=== PATIENT | female | born 1970 | race Caucasian/White ===

== ENCOUNTER 2020-10-28 08:33 | Emergency (ER) | payer BC, SELFPAY ==
[2020-10-28 08:48] VITALS: BP 114/68; PULSE 78; RESP 16; TEMP 37.2; O2SAT 100
--- NOTE | 2020-10-28 09:30 | ED.URI ---
HPI - URI/Sore Throat General Chief Complaint: Upper Respiratory Infection Stated Complaint: Test for Flu Time Seen by Provider: 10/28/20 09:05 Source: patient and RN notes reviewed Mode of arrival: ambulatory Limitations: no limitations History of Present Illness HPI Narrative: Patient presents today complaining of productive cough, fatigue, runny nose, sneezing since yesterday. Denies fever, shortness of breath, sore throat, ear pain, nausea, vomiting, diarrhea. She does have seasonal allergies, but does not take any medication for it. She is in town from [place]. Her grandson tested positive for influenza A yesterday and is here for a flu test. She does smoke. MD elicited complaint: cough Related Data Home Medications Medication Instructions Recorded Confirmed atorvastatin 10 mg PO DAILY 10/28/20 10/28/20 lisinopril 2.5 mg PO DAILY 10/28/20 10/28/20 metformin 500 mg PO BID 10/28/20 10/28/20 Allergies Allergy/AdvReac Type Severity Reaction Status Date / Time No Known Allergies Allergy Verified 10/28/20 09:27 Review of Systems Review of Systems: Narrative: CONSTITUTIONAL: Denies body aches, fever, chills, or sweats.+ Fatigue EYES: Denies visual changes, redness, or discharge. ENT: Denies congestion, sore throat, or otalgia. + Rhinorrhea, sneezing CARDIOVASCULAR: Denies chest pain, palpitations, or edema. RESPIRATORY: Denies dyspnea. + Cough GASTROINTESTINAL: Denies abdominal pain, nausea, vomiting, or diarrhea. GENITOURINARY: Denies dysuria or hematuria. SKIN: Denies rash, itching, or wounds. MUSCULOSKELETAL: Denies back pain, joint pain, or myalgia. NEUROLOGIC: Denies headache, numbness, tingling, or weakness. PSYCH: Denies depression or anxiety. [facility] Past Medical History Medical History (Updated 10/28/20 @ 09:36 by Candice Jones, XIOMARA, BC) Diabetes High cholesterol Hypothyroidism Social History Social History (Updated 10/28/20 @ 09:32 by Candice Jones, XIOMARA, ) Smoking status: Current every day smoker Tobacco type: cigarettes Gender identity (if verbalized by the patient): Female Comments At time of signature, I have reviewed and agree with nursing past medical, surgical, social and family history unless otherwise noted. Please see nursing chart for further information. There is no relevant family history pertinent to the presenting complaint Exam Narrative: Exam Narrative: GENERAL: Well-appearing, well-nourished, and in no acute distress. HEAD: Normocephalic, atraumatic. EYES: EOMI. No redness or drainage. Conjunctivae normal. ENT: Mucous membranes pink and moist. Nares clear. No rhinorrhea. TMs normal bilaterally. Throat normal with clear postnasal drainage. Uvula midline. NECK: Normal AROM. Supple. No lymphadenopathy. CHEST: No respiratory distress. Clear to auscultation. HEART: Regular rate and rhythm. No murmur appreciated. Normal peripheral pulses. EXTREMITIES: Normal range of motion. No edema. SKIN: Warm, dry, no rash. Capillary refill normal. Normal skin turgor. NEURO: No focal deficits. Alert and oriented x3. Gait steady. PSYCH: Normal affect. No signs of depression or anxiety. Course Vital Signs Vital signs: Vital Signs Temperature 98.9 F 10/28/20 08:48 Pulse Rate 78 10/28/20 08:48 Respiratory Rate 16 10/28/20 08:48 Blood Pressure 114/68 10/28/20 08:48 Pulse Oximetry 100 10/28/20 08:48 Temperature 98.9 F 10/28/20 08:48 Pulse Rate 78 10/28/20 08:48 Respiratory Rate 16 10/28/20 08:48 Blood Pressure 114/68 10/28/20 08:48 Pulse Oximetry 100 10/28/20 08:48 Reviewed. Pt has been instructed to follow up with his PCP regarding his elevated blood pressure today. MDM - URI/Sore Throat Differential Diagnosis Differential diagnosis: Likely upper respiratory infection, otitis media, sinusitis, viral infection, bronchitis, influenza and other (Rhinitis, seasonal allergies) Lab Data Attestation: I reviewed the patient's lab
== END 2020-10-28 09:45 | disposition home or self-care (01) ==
PROVIDERS: Emergency Provider Nurse Practitioner
DX: J30.2 Other seasonal allergic rhinitis (principal); F17.210 Nicotine dependence, cigarettes, uncomplicated; E11.9 Type 2 diabetes mellitus without complications; E78.00 Pure hypercholesterolemia, unspecified; E03.9 Hypothyroidism, unspecified
CPT/HCPCS: 87804; 99213; A9270; G0463

== ENCOUNTER 2025-01-10 08:02 | Outpatient (CLI) | payer BC, SELFPAY ==
--- NOTE | ~2025-01-10 | US_ITS ---
US breast RT limited 01/10/2025 08:37 Indication: Right breast mass seen on outside examination. Ultrasound requested. Procedure: High-resolution Limited ultrasound of the right breast Comparison: Mammogram dated 12/02/2024 Findings: At 10:00, 1 cm from the nipple there is an oval hypoechoic mass measuring 5 mm without post erior acoustic enhancement or internal vascularity. There are circumscribed margins with parallel ghazala entation, likely benign. At 10:00, 7 cm from the nipple there is a 12 mm intramammary lymph node with normal fatty hilum, corresponding to the mammographic finding. Impression: 1: Probable benign findings of the right breast. BI-RADS CATEGORY 3-PROBABLY BENIGN FINDING RECOMMENDATION: Six-month follow-up diagnostic right mammogram and Limited right breast ultrasound re commended. Reviewed, dictated and finalized at location A. Impression: 1: Probable benign findings of the right breast. BI-RADS CATEGORY 3-PROBABLY BENIGN FINDING RECOMMENDATION: Six-month follow-up diagnostic right mammogram and Limited righ t breast ultrasound recommended.
--- OUTSIDE RECORDS SUMMARY | 2025-01-10 08:07 | XMS_ITS | Encounter Summary ---
Author Organization [facility] Address [address] [place] [address] Care Team Providers Care Clinical Microbiologist Name Role Phone System, Pcp Not In Primary Care Provider Santa Henry APN Primary Care Provider [phone] Encounter Details Date Type Department Care Team (Late st Contact Info) Description 03/04/2018 Outpatient Orders Only Reserve GAS WELDING MACHINE OPERATOR [address], [address] [address] Provider, MD Rachel [address] [place] [address] Social History Tobacco Use Types Packs/Day Years Used Date Smoking Tobacco: Every Day Cigarettes Smokeless Tobacco: Never Alcohol Use Standard Drinks/Week Comments Yes 0 (1 standard drink = 0.6 oz pur e alcohol) SOCIAL Comments No Sex and Gender Information Value Date Recorded Sex Assigned at Not on file Legal Sex Female 8:46 EDT Gender Identity Not on file Sexual Orientation Not on file documented as of this encounter Plan of Treatment Not on file documented as of this encounter Procedures Procedure Name Priority Date/Time Associated Diagnosis Comments SCANNED ULTRASOUND Routine 03/04/2018 documented in this encounter Results * SCANNED ULTRASOUND (03/04/2018) us Historical Provider MD CRISTINA US ORDERABLES Final R esult documented in this encounter Visit Diagnoses Not on filedocumented in this encounter Additional Health Concerns Infection Onset Date Last Indicated Resolved Time COVID-19 Rule Out 03/20/2020 03/21/2020 03/22/2020 0:01 EDT COVID-19 Screening Pending 02/27/2021 02/27/2021 1 3:26 EDT documented as of this encounter Care Teams Clinical Microbiologist Relationship Specialty Start Date End Date System, Pcp Not In PCP - General 10/06/17 01/31/20 Santa Vitale APN [address] [place] [address] PCP - General Family Medicine 02/01/20 documented as of this encounter
--- OUTSIDE RECORDS SUMMARY | 2025-01-10 08:07 | XMS_ITS | Encounter Summary ---
Author Organization [facility] Address [address] [place] [address] Phone Care Team Providers Care Impregnator Helper Name Role Phone Milly Erickson APRN, CNP Primary Care Provid er Brigido Vaz MD Unavailable Kyle Panda MD Unavailable Demetria Woodall MD Unavailable Reason for Visit * Reason Comments Medication Refill Encounter Details Date Type Department Care Team (Late st Contact Info) Description 05/06/2023 Refill [facility] - Family Medicine [facility] [address] [place] [address] Jae Lopes MD [address] [place] [address] Medication Refill Social History Tobacco Use Types Packs/Day Years Used Date Smoking Tobacco: Every Day Cigarettes 1 15 Smokeless Tobacco: Never Alcohol Use Standard Drinks/Week Comments Not Currently 0 (1 standard drink = 0.6 oz pur e alcohol) PHQ-2 Answer Date Recorded Total Score - Questions 1-9 0 06/0 06/2021 Education Answer Date Recorded What is the highest level of school you have completed or the highest degree you have received? Some college, no degree 07/24/2022 Sexually Active Control Partners Comments Not Currently Male Comments No Sex and Gender Information Value Date Recorded Sex Assigned at Not on file Legal Sex Female 4:41 PM CDT Gender Identity Not on file Sexual Orientation Not on file COVID-19 Exposure Response Date Recorded In the last 10 days, have yo u been in contact with someone who was confirmed or suspected to have Coronavirus/COVID-19? No / Unsure 04/10/2023 7:00 AM HOSPICE CARE TRANSITIONS COORDINATOR documented as of this encounter Miscellaneous Notes * Telephone Encounter - BenjaRachelluigi Duarte RN - 05/06/2023 2:08 PM CST Continue current dose? Per nursing clinical judgement, provider to review and approve the medication(s) order(s) if appropriate. Requested Prescriptions Pending Prescriptions Disp Refills Trulicity 0.75 MG/0.5ML Solution Pen-injector [Pharmacy Med Name: TRULICITY 0.75MG/0.5ML SDP 0.5ML]2 mL 0 Sig: ADMINISTER 0.75 MG UNDER THE SKIN 1 TIME A WEEK GLP-1 Agonists Protocol Passed - 05/06/2023 8:50 AM Passed - Lipid panel result on file in past 12 months LDL Date Value Ref Range Status 12/06/2022 113 5 - 130 mg/dL Final 08/07/2022 135 (A) 0 - 130 mg/dL Final HDL CHOLESTEROL Date Value Ref Range Status 12/06/2022 62.8 >40 mg/dL Final CHOLESTEROL Date Value Ref Range Status 12/06/2022 203 (H) <=200 mg/dL Final TRIGLYCERIDES Date Value Ref Range Status 12/06/2022 134 <150 mg/dL Final VLDL Date Value Ref Range Status 12/06/2022 27 5 - 55 mg/dL Final CHOL/HDL RATIO Date Value Ref Range Status 12/06/2022 3.2 0.0 - 4.4 Final NON-HDL CHOLESTEROL Date Value Ref Range Status 12/06/2022 140.2 (H) <130 mg/dL Final Passed - Visit with relevant provider in past 6 months or upcoming 90 days Recent Visits Date Type Provider Dept 03/10/23 Office Visit Milly Erickson APRN, [facility] [place] 12/06/22 Office Visit Milly Erickson APRN, [facility] [place] Showing recent visits within past 182 days and meeting all other requirements Future Appointments Date Type Provider Dept 02/09/24 Appointment Milly Erickson [facility]N, [facility] Showing future appointments within next 90 days and meeting all other requirements Passed - HgA1C result on record in past 6 months HGB-A1C Date Value Ref Range Status 03/10/2023 6.5 (A) 4 - 6 % Final Passed - GFR on record in past 6 months GFR, EST. NONAFRICAN Date Value Ref Range Status 12/06/2022 >60 >=60 Final ICE CARE TRANSITIONS COORDINATOR documented in this encounter Plan of Treatment Upcoming Encounters Date Type Department Care Team (Late st Contact Info) Description 01/10/2025 1:30 PM CDT Office Visit [facility] - Cardiology - [place] [address] [place] [phone] Sarah Luong APRN, CASHIER GAMBLING [address] [place] [phone] 07/04/2025 10:30 AM HOSPICE CARE TRANSITIONS COORDINATOR Office Visit [facility] - Family Medicine - [place] [address] [place] [phone] Milly Erickson APRN, KOBE [address] [place] [phone] documented as of this encounter Visit Diagnoses Diagnosis Type 2 diabetes mellitus without complication, without long-term current use of insulin documented in this encounter Care Teams Impregnator Helper Relationship Specialty Start Date End Date Milly Erickson APRN, KOBE [address] [place] [phone] PCP - General Advanced Practice Nurse 10/31/21 Brigido Vaz MD [address] [place] [address] Long Distance Billing Operator Cardiovascular Disease - Cardiology 11/16/21 07/21/24 Kyle Vora MD #[address] [address] Consulting Physician Colon and Rectal Surgery 05/14/24 Demetria Woodall MD 2 [facility] [address] [address] Consulting Physician Cardiology 06/25/24 documented as of this encounter
--- OUTSIDE RECORDS SUMMARY | 2025-01-10 08:07 | XMS_ITS | Encounter Summary ---
Author Organization [facility] Address [address] [place] [address] Phone Care Team Providers Care Elementary Supervisor Name Role Phone Milly Erickson APRN, CNP Primary Care Provid er Brigido Vaz MD Unavailable Kyle Panda MD Unavailable Demetria Woodall MD Unavailable Reason for Visit * Reason Comments Medication Refill Encounter Details Date Type Department Care Team (Late st Contact Info) Description 07/01/2022 Refill [facility] - Family Medicine [place] [address] [place] [address] Milly Erickson APRN, CNP [address] [address] Medication Refill Social History Tobacco Use Types Packs/Day Years Used Date Smoking Tobacco: Every Day Cigarettes 1 15 Smokeless Tobacco: Never Alcohol Use Standard Drinks/Week Comments Not Currently 0 (1 standard drink = 0.6 oz pur e alcohol) PHQ-2 Answer Date Recorded Total Score - Questions 1-9 0 06/06/2021 Sexually Active Control Partners Comments Not Currently Male Comments No Sex and Gender Information Value Date Recorded Sex Assigned at Not on file Legal Sex Female 4:41 PM CDT Gender Identity Not on file Sexual Orientation Not on file documented as of this encounter Miscellaneous Notes * Telephone Encounter - Charlene Yousif RN - 07/02/2022 7:38 AM CST Rx has changed from (4) 10 mg tabs daily to (1) 40 mg tab daily Medication failed the protocol, provider to review and approve the medication order if appropriate. Requested Prescriptions Pending Prescriptions Disp Refills atorvastatin (LIPITOR) 40 MG Tablet 100 Tablet 2 Sig: Take 1 Tablet by mouth daily. Hmg CoA Reductase Inhibitors Protocol Failed - 07/01/2022 9:05 PM Failed - Lipid panel in past 12 months LDL Date Value Ref Range Status 10/31/2021 74 0 - 130 mg/dL Final Passed - No positive test in the past 12 months or most recent test was negative Passed - Visit with relevant provider in past 12 months or upcoming 90 days Recent Visits Date Type Provider Dept 02/22/22 Office Visit Milly Erickson APRN, CNP [facility] 02/11/22 Office Visit Milly Erickson APRN, CNP [facility] 10/31/21 Office Visit Milly Erickson APRN, [facility] [place] Showing recent visits within past 365 days and meeting all other requirements Future Appointments No visits were found meeting these conditions. Showing future appointments within next 90 days and meeting all other requirements Passed - No active on record RVISOR HAIRSPRING FABRICATION documented in this encounter Plan of Treatment Upcoming Encounters Date Type Department Care Team (Late st Contact Info) Description 01/10/2025 1:30 PM CDT Office Visit [facility] - Cardiology - [place] [address] [place] [phone] Sarah Luong APRN, [facility] [address] [facility] [phone] 07/04/2025 10:30 AM SUPERVISOR HAIRSPRING FABRICATION Office Visit [facility] - Family Medicine - [place] [address] [facility] [phone] Milly Erickson APRN, LEARNING PROGRAM MANAGER [address] [address] documented as of this encounter Visit Diagnoses Diagnosis Type 2 diabetes mellitus without complication, without long-term current use of insulin Mixed hyperlipidemia documented in this encounter Care Teams Elementary Supervisor Relationship Specialty Start Date End Date Milly EricksonHORTENSIA, LEARNING PROGRAM MANAGER [address] [address] PCP - General Advanced Practice Nurse 10/31/21 Brigido Vaz MD [address] [address] Supervisor Elementary Education Cardiovascular Disease - Cardiology 11/16/21 07/21/24 Kyle Vora MD [address] [address] Consulting Physician Colon and Rectal Surgery 05/14/24 Demetria Woodall MD 2 [facility] [place] [address] [address] Consulting Physician Cardiology 06/25/24 documented as of this encounter
--- OUTSIDE RECORDS SUMMARY | 2025-01-10 08:07 | XMS_ITS | Encounter Summary ---
Author Organization [facility] Address [address] [place] [address] Phone Care Team Providers Care Muffler Mechanic Name Role Phone Milly Erickson APRN, CNP Primary Care Provid er Brigido Vaz MD Unavailable Kyle Panda MD Unavailable Demetria Woodall MD Unavailable Reason for Visit * Reason Comments Medication Refill Encounter Details Date Type Department Care Team (Late st Contact Info) Description 04/06/2023 Refill [facility] - Family Medicine [facility] [address] [place] [address] Milly Erickson APRN, CNP [address] [address] Medication Refill Social History Tobacco Use Types Packs/Day Years Used Date Smoking Tobacco: Every Day Cigarettes 1 15 Smokeless Tobacco: Never Alcohol Use Standard Drinks/Week Comments Not Currently 0 (1 standard drink = 0.6 oz pur e alcohol) PHQ-2 Answer Date Recorded Total Score - Questions 1-9 0 06/2021 Education Answer Date Recorded What is [...] suspected to have Coronavirus/COVID-19? No / Unsure 04/08/2023 7:00 AM COAGULATING OPERATOR documented as of this encounter Miscellaneous Notes * Telephone Encounter - Charlene Yousif RN - 04/07/2023 11:35 AM CST Continue current dose? Per nursing clinical judgement, provider to review and approve the medication(s) order(s) if appropriate. Requested Prescriptions Pending Prescriptions Disp Refills Trulicity 0.75 MG/0.5ML Solution Pen-injector [Pharmacy Med Name: TRULICITY 0.75MG/0.5ML SDP 0.5ML]2 mL 0 Sig: ADMINISTER 0.75 MG UNDER THE SKIN 1 TIME A WEEK GLP-1 Agonists Protocol Passed - 04/06/2023 4:07 PM Passed - Lipid panel result on file [...] Ref Range Status 12/06/2022 >60 >=60 Final ULATING OPERATOR documented in this encounter Plan of Treatment Upcoming Encounters Date Type Department Care Team (Late st Contact Info) Description 01/10/2025 1:30 PM CDT Office Visit [facility] - Cardiology - [place] [address] [place] [address] Sarah Luong APRN, STARCHMAKER [address] [place] [address] 07/04/2025 10:30 AM COAGULATING OPERATOR Office Visit [facility] - Family Medicine - [place] [address] [place] [address] Milly Erickson APRN, STARCHMAKER [address] [address] documented as of this encounter Visit Diagnoses Diagnosis Type 2 diabetes mellitus without complication, without long-term current use of insulin documented in this encounter Care Teams Muffler Mechanic Relationship Specialty Start Date End Date Milly Erickson APRN, STARCHMAKER #[address] [address] PCP - General Advanced Practice Nurse 10/31/21 Brigido Vaz MD [address] [place] [address] Montessori Paraprofessional Cardiovascular Disease - Cardiology 11/16/21 07/21/24 Kyle Vora MD #[address] [address] Consulting Physician Colon and Rectal Surgery 05/14/24 Demetria Woodall MD 2 [facility] [address] [address] Consulting Physician Cardiology 06/25/24 documented as of this encounter
--- OUTSIDE RECORDS SUMMARY | 2025-01-10 08:07 | XMS_ITS | Encounter Summary ---
Author Organization [facility] Address [address] [place] [address] Phone Care Team Providers Care Commercial Banker Name Role Phone Milly Erickson APRN, CNP Primary Care Provid er Brigido Vaz MD Unavailable Kyle Panda MD Unavailable Demetria Woodall MD Unavailable Reason for Visit * Reason Comments Medication Refill Encounter Details Date Type Department Care Team (Late st Contact Info) Description 12/28/2022 Refill [facility] - Family Medicine [facility] #2 [place] [address] Milly Erickson APRN, CNP [address] [address] Medication Refill Social History Tobacco [...] suspected to have Coronavirus/COVID-19? No / Unsure 12/24/2022 7:36 AM CDT documented as of this encounter Miscellaneous Notes * Telephone Encounter - Lakisha Fung RN - 12/29/2022 10:13 AM CDT Warning activated: Duplicate Therapy: metFORMIN Patient had OV 12/06/22. Per med list: Does she take 1000mg in AM and 500mg HS? Per nursing clinical judgement, provider to review and approve the medication(s) order(s) if appropriate. Requested Prescriptions Pending Prescriptions Disp Refills metFORMIN (GLUCOPHAGE) 500 MG Tablet [Pharmacy Med Name: metFORMIN HCl 500 MG Oral Tablet] 90 Tablet 3 Sig: TAKE 1 TABLET BY MOUTH AT NIGHT Biguanides Protocol Passed - 12/28/2022 10:06 PM Passed - Visit with relevant provider in past 6 months or upcoming 90 days Recent Visits Date Type Provider Dept 12/06/22 Office Visit Milly Erickson APRN, CNP [facility] 08/06/22 Office Visit Milly Erickson APRN, CNP [facility] [place] Showing recent visits within past 182 days and meeting all other requirements Future Appointments Date Type Provider Dept 03/10/23 Appointment Milly Erickson APRN, CNP [facility] [place] Showing future appointments within next 90 days and meeting all other requirements Passed - HgA1C on record in past 6 months HGB-A1C Date Value Ref Range Status 12/06/2022 6.7 (A) 4 - 6 % Final Passed - GFR on record in past 6 months GFR, EST. NONAFRICAN Date Value Ref Range Status 12/06/2022 >60 >=60 Final documented in this encounter Plan of Treatment Upcoming Encounters Date Type Department Care Team (Late st Contact Info) Description 01/10/2025 1:30 PM CDT Office Visit [facility] - Cardiology - [place] #2 [place] [address] Sarah Luong APRN, TRIAL JUDGE [address] [place] [address] 07/04/2025 10:30 AM SOLAR LAB TECHNICIAN Office Visit [facility] - Family [facility] [address] [place] [address] Milly Erickson APRN, TRIAL JUDGE [address] [facility] [address] [place] [address] documented as of this encounter Visit Diagnoses Diagnosis Type 2 diabetes mellitus without complication, without long-term current use of insulin documented in this encounter Care Teams Commercial Banker Relationship Specialty Start Date End Date Milly Erickson APRN, TRIAL JUDGE [address] [facility] [address] [place] [address] PCP - General Advanced Practice Nurse 10/31/21 Brigido Vaz MD #[address] [facility] [address] [place] [address] Human Anatomy Teacher Cardiovascular Disease - Cardiology 11/16/21 07/21/24 Kyle Vora MD #[address] [address] Consulting Physician Colon and Rectal Surgery 05/14/24 Demetria Woodall MD [address] [facility] [address] [place] [address] Consulting Physician Cardiology 06/25/24 documented as of this encounter
--- OUTSIDE RECORDS SUMMARY | 2025-01-10 08:07 | XMS_ITS | Encounter Summary ---
Author Organization [facility] Address [address] [place] [address] Phone Care Team Providers Care Die Baker Name Role Phone Milly Erickson APRN, CNP Primary Care Provid er Brigido Vaz MD Unavailable Kyle Panda MD Unavailable Demetria Woodall MD Unavailable Reason for Visit * Reason Comments Medication Refill Encounter Details Date Type Department Care Team (Late st Contact Info) Description 07/07/2023 Refill [facility] Group - Family Medicine [facility] #2 [place] [address] Milly Erickson APRN, CNP #[address] [address] Medication Refill Social History Tobacco [...] Telephone Encounter - Charlene Yousif RN - 07/08/2023 8:27 AM CST Images from the original note were not included. July 07, 2023 Yvette Hintonp to Delmer Rene (supporting You) 07/07/23 5:33 PM No, the current dose is working well! Thank you RAMMING MANAGER * Telephone Encounter - Milly Erickson APRN, CNP - 07/08/2023 8:22 AM PROGRAMMING MANAGER Please see if patient wants to increase her dose. RAMMING MANAGER * Telephone Encounter - Milly Erickson APRN, CNP - 07/07/2023 3:42 PM PROGRAMMING MANAGER How is patient doing on current dose? Does she want to increase? RAMMING MANAGER * Telephone Encounter - Charlene Yousif RN - 07/07/2023 2:46 PM CST Medication failed the protocol, provider to review and approve the medication order if appropriate. Requested Prescriptions Pending Prescriptions Disp Refills Trulicity 0.75 MG/0.5ML Solution Pen-injector [Pharmacy Med Name: TRULICITY 0.75MG/0.5ML SDP 0.5ML]2 mL 0 Sig: ADMINISTER 0.75 MG UNDER THE SKIN 1 TIME A WEEK GLP-1 Agonists Protocol Failed - 07/07/2023 3:55 AM Failed - GFR on record in past 6 months GFR, EST. NONAFRICAN Date Value Ref Range Status 07/07/2023 >60 >=60 Final Passed - Lipid panel result on file in past 12 months LDL Date Value Ref Range Status 07/07/2023 164 (H) <130 mg/dL Final 08/07/2022 135 (A) 0 - 130 mg/dL Final HDL CHOLESTEROL Date Value Ref Range Status 07/07/2023 53 >40 mg/dL Final CHOLESTEROL Date Value Ref Range Status 07/07/2023 259 (H) <200 mg/dL Final TRIGLYCERIDES Date Value Ref Range Status 07/07/2023 210 (H) <150 mg/dL Final VLDL Date Value Ref Range Status 07/07/2023 42 10 - 50 mg/dL Final CHOL/HDL RATIO Date Value Ref Range Status 07/07/2023 4.9 (H) 0.0 - 4.4 Final NON-HDL CHOLESTEROL Date Value Ref Range Status 07/07/2023 206 (H) <130 mg/dL Final Passed - Visit with relevant provider in past 6 months or upcoming 90 days Recent Visits Date Type Provider Dept 03/10/23 Office Visit Milly Erickson APRN, CNP [facility] Showing recent visits within past 182 days and meeting all other requirements Future Appointments Date Type Provider Dept 07/11/23 Appointment Milly Erickson APRN, CNP [facility] Showing future appointments within next 90 days and meeting all other requirements Passed - HgA1C result on record in past 6 months HGB-A1C Date Value Ref Range Status 03/10/2023 6.5 (A) 4 - 6 % Final HGB-A1C Date Value Ref Range Status 07/07/2023 5.7 4.0 - 6.0 % Final RAMMING MANAGER documented in this encounter Plan of Treatment Upcoming Encounters Date Type Department Care Team (Late st Contact Info) Description 01/10/2025 1:30 PM CDT Office Visit [facility] Medical Group - Cardiology - [place] [address] [place] [phone] Sarah Luong APRN, TOOL STRAIGHTENER #2 [place] [id number] 07/04/2025 10:30 AM PROGRAMMING MANAGER Office Visit [facility] Medical [facility] - Family Medicine - [place] #2 [place] [address] Milly Erickson APRN, TOOL STRAIGHTENER #[address] [address] documented as of this encounter Visit Diagnoses Diagnosis Type 2 diabetes mellitus without complication, without long-term current use of insulin documented in this encounter Care Teams Die Baker Relationship Specialty Start Date End Date Milly Erickson APRN, TOOL STRAIGHTENER [address] [address] PCP - General Advanced Practice Nurse 10/31/21 Brigido Vaz MD #[address] [address] Sewing Machine Operator Plastic Zipper Cardiovascular Disease - Cardiology 11/16/21 07/21/24 Kyle Vora MD #[address] [address] Consulting Physician Colon and Rectal Surgery 05/14/24 Demetria Woodall MD 2 [facility] [place] [address] [address] Consulting Physician Cardiology 06/25/24 documented as of this encounter
--- OUTSIDE RECORDS SUMMARY | 2025-01-10 08:07 | XMS_ITS | Encounter Summary ---
Author Organization [facility] Address [address] [place] [address] Phone Care Team Providers Care Finance Executive Name Role Phone Milly Erickson APRN, CNP Primary Care Provid er Brigido Vaz MD Unavailable Kyle Panda MD Unavailable Demetria Woodall MD Unavailable Reason for Visit * Reason Comments Medication Refill Encounter Details Date Type Department Care Team (Late st Contact Info) Description 01/07/2023 Refill [facility] - [facility] #2 [place] [address] Milly Erickson APRN, CNP #[address] [address] Medication Refill Social History Tobacco [...] encounter Miscellaneous Notes * Telephone Encounter - Gayle Pickens RN - 01/08/2023 8:20 AM CDT Images from the original note were not included. Refill request too soon Lisinopril Dispensed Days Supply Quantity Provider Pharmacy LISINOPRIL 2.5 MG TABS 11/13/2022 90 90 Tablet Milly Erickson APRN, CNP [email or web address], [facility] documented in this encounter Plan of Treatment Upcoming Encounters Date Type Department Care Team (Late st Contact Info) Description 01/10/2025 1:30 PM CDT Office Visit [facility] Medical Group - Cardiology - [place] #2 [place] [address] Sarah Luong APRN, KOBE [address]2 [place] [phone] 07/04/2025 10:30 AM COMPENSATION DIRECTOR Office Visit [facility] Medical Group - Family Medicine - [place] [address]2 [place] [address] Milly Erickson APRN, CNP #[address] [address] documented as of this encounter Visit Diagnoses Diagnosis Type 2 diabetes mellitus without complication, without long-term current use of insulin Mixed hyperlipidemia documented in this encounter Care Teams Finance Executive Relationship Specialty Start Date End Date Milly Erickson APRN, CNP #[address] [address] PCP - General Advanced Practice Nurse 10/31/21 Brigido Vaz MD #2 [facility] [address] [place] [address] Banquet Bartender Cardiovascular Disease - Cardiology 11/16/21 07/21/24 Kyle Vora MD #2 [facility] [address] [place] [address] Consulting Physician Colon and Rectal Surgery 05/14/24 Demetria Woodall MD 2 [facility] [address] [place] [address] Consulting Physician Cardiology 06/25/24 documented as of this encounter
--- OUTSIDE RECORDS SUMMARY | 2025-01-10 08:07 | XMS_ITS | Encounter Summary ---
Author Organization [facility] Address [address] [place] [address] Phone Care Team Providers Care Level Vial Inspector And Tester Name Role Phone Milly Erickson APRN, CNP Primary Care Provid er Brigido Vaz MD Unavailable Kyle Panda MD Unavailable Demetria Woodall MD Unavailable Reason for Visit * Reason Comments Medication Refill Encounter Details Date Type Department Care Team (Late st Contact Info) Description 02/12/2023 Refill [facility] - Family Medicine [facility] #2 [place] [address] Hadley Gomez MD #[address] [address] Medication Refill Social History Tobacco Use Types [...] Telephone Encounter - Charlene Yousif RN - 02/13/2023 10:22 AM CDT Medication failed the protocol, provider to review and approve the medication order if appropriate. Requested Prescriptions Pending Prescriptions Disp Refills atorvastatin (LIPITOR) 40 MG Tablet [Pharmacy Med Name: Atorvastatin Calcium 40 MG Oral Tablet] 100Tablet 2 Sig: TAKE 1 TABLET BY MOUTH DAILY Hmg CoA Reductase Inhibitors Protocol Failed - 02/12/2023 9:34 PM Failed - CMP in past 12 months SODIUM Date Value Ref Range Status 12/06/2022 136 136 - 144 mmol/L Final POTASSIUM Date Value Ref Range Status 12/06/2022 4.4 3.5 - 5.1 mmol/L Final CHLORIDE Date Value Ref Range Status 12/06/2022 101 100 - 110 mmol/L Final CO2, VENOUS Date Value Ref Range Status 12/06/2022 24 22 - 32 mmol/L Final ANION GAP Date Value Ref Range Status 12/06/2022 15.4 8.0 - 20.0 mmol/L Final GLUCOSE Date Value Ref Range Status 12/06/2022 95 70 - 99 mg/dL Final BUN Date Value Ref Range Status 12/06/2022 13 6 - 20 mg/dL Final CREATININE, BLOOD Date Value Ref Range Status 12/06/2022 0.76 0.60 - 1.10 mg/dL Final BUN/CREATININE RATIO Date Value Ref Range Status 12/06/2022 17 12 - 20 ratio Final TOTAL PROTEIN Date Value Ref Range Status 12/06/2022 7.5 6.0 - 8.3 g/dL Final ALBUMIN Date Value Ref Range Status 12/06/2022 4.5 3.5 - 5.2 g/dL Final Comment: The colormetric methods used for the determination of Albumin may lead to falsely elevated test results in patients suffering from renal failure or insufficiency due to interference with other proteins. CALCIUM Date Value Ref Range Status 12/06/2022 9.9 8.9 - 10.3 mg/dL Final T BILI Date Value Ref Range Status 12/06/2022 <0.3 <=1.2 mg/dL Final SGOT (AST) Date Value Ref Range Status 12/06/2022 13 <=32 U/L Final SGPT (ALT) Date Value Ref Range Status 12/06/2022 11 <=41 U/L Final ALKALINE PHOSPHATASE Date Value Ref Range Status 12/06/2022 78 35 - 105 U/L Final GFR, EST. NONAFRICAN Date Value Ref Range Status 12/06/2022 >60 >=60 Final GFR, EST. Date Value Ref Range Status 12/06/2022 >60 >=60 Final GFR, ESTIMATED Date Value Ref Range Status 12/06/2022 >60 >=60 Final Comment: Creatinine Clearance is the preferred criteria for selecting drug dose adjustments in renally impaired patients. The GFR is provided as additional pertinent clinical information. GFR is reported in mL/min/1.73 sq m. Calculation based on the Chronic Kidney Disease Epidemiology Collaboration (CKD- EPI) equation refitwithout adjustment for race. Passed - No positive test in the past 12 months or most recent test was negative Passed - Visit with relevant provider in past 12 months or upcoming 90 days Recent Visits Date Type Provider Dept 12/06/22 Office Visit Milly Erickson APRN, KOBE [facility] 08/06/22 Office Visit Milly Erickson APRN, KOBE [facility] 02/22/22 Office Visit Milly Erickson APRN, KOBE [facility] Showing recent visits within past 365 days and meeting all other requirements Future Appointments Date Type Provider Dept 03/10/23 Appointment Milly Erickson APRN, KOBE [facility] Showing future appointments within next 90 days and meeting all other requirements Passed - No active on record Passed - Lipid panel in past 12 months [...] Status 12/06/2022 140.2 (H) <130 mg/dL Final documented in this encounter Plan of Treatment Upcoming Encounters Date Type Department Care Team (Late st Contact Info) Description 01/10/2025 1:30 PM CDT Office Visit [facility] Medical [facility] - Cardiology [facility] #2 [place] [address] Sarah Luong APRN, LOAN INSPECTOR #2 [place] [address] 07/04/2025 10:30 AM BRIDGE TOLL COLLECTOR Office Visit [facility] Family Medicine [facility] #2 [place] [address] Milly Erickson APRN, LOAN INSPECTOR #[address] [place] [address] documented as of this encounter Visit Diagnoses Diagnosis Type 2 diabetes mellitus without complication, without long-term current use of insulin Mixed hyperlipidemia documented in this encounter Care Teams Level Vial Inspector And Tester Relationship Specialty Start Date End Date Milly Erickson APRN, LOAN INSPECTOR #[address] [address] PCP - General Advanced Practice Nurse 10/31/21 Brigido Vaz MD #[address] [place] [address] Pump Operator Cardiovascular Disease - Cardiology 11/16/21 07/21/24 Kyle Vora MD #[address] [address] Consulting Physician Colon and Rectal Surgery 05/14/24 Demetria Woodall MD [address] [place] [address] Consulting Physician Cardiology 06/25/24 documented as of this encounter
--- OUTSIDE RECORDS SUMMARY | 2025-01-10 08:07 | XMS_ITS | Encounter Summary ---
Author Organization [facility] Address [address] [place] [address] Phone Care Team Providers Care Tourist Information Officer Name Role Phone Milly Erickson APRN, CNP Primary Care Provid er Brigido Vaz MD Unavailable Kyle Panda MD Unavailable Demetria Woodall MD Unavailable Reason for Visit * Reason Comments Medication Refill Encounter Details Date Type Department Care Team (Late st Contact Info) Description 07/31/2023 Refill [facility] Medical Group - Family Medicine [facility] #2 [place] [address] Milly Erickson APRN, CNP #[address] [address] Medication Refill Social History Tobacco [...] Telephone Encounter - Charlene Yousif RN - 07/31/2023 10:32 AM CST Medication(s) refilled and signed per [facility] Chronic Medication Refill Standing Order for Pediatricand Adult Patients. Requested Prescriptions Pending Prescriptions Disp Refills Trulicity 0.75 MG/0.5ML Solution Pen-injector [Pharmacy Med Name: TRULICITY 0.75MG/0.5ML SDP 0.5ML]2 mL 0 Sig: ADMINISTER 0.75 MG UNDER THE SKIN 1 TIME A WEEK GLP-1 Agonists Protocol Passed - 07/31/2023 9:18 AM Passed - Lipid panel result on [...] Dept 03/10/23 Office Visit Milly Erickson APRN, SURVEYOR GEOPHYSICAL PROSPECTING [facility] Showing recent visits within past 182 days and meeting all other requirements Future Appointments Date Type Provider Dept 08/04/23 Appointment Milly Erickson APRN, KOBE [facility] Showing future appointments within next 90 days and meeting all other requirements Passed - HgA1C result on record in past 6 months HGB-A1C Date Value Ref Range Status 03/10/2023 6.5 (A) 4 - 6 % Final HGB-A1C Date Value Ref Range Status 07/07/2023 5.7 4.0 - 6.0 % Final Passed - GFR on record in past 6 months GFR, EST. NONAFRICAN Date Value Ref Range Status 07/07/2023 >60 >=60 Final E GROCERY MERCHANDISER documented in this encounter Plan of Treatment Upcoming Encounters Date Type Department Care Team (Late st Contact Info) Description 01/10/2025 1:30 PM CDT Office Visit [facility] Medical [facility] - Cardiology [facility] #2 [place] [address] Sarah Luong APRN, SURVEYOR GEOPHYSICAL PROSPECTING #2 [place] [address] 07/04/2025 10:30 AM STORE GROCERY MERCHANDISER Office Visit [facility] - Family Medicine [facility] #[address] [place] [address] Milly Erickson APRN, SURVEYOR GEOPHYSICAL PROSPECTING #[address] [address] documented as of this encounter Visit Diagnoses Diagnosis Type 2 diabetes mellitus without complication, without long-term current use of insulin documented in this encounter Care Teams Tourist Information Officer Relationship Specialty Start Date End Date Milly Erickson APRN, SURVEYOR GEOPHYSICAL PROSPECTING #[address] [address] PCP - General Advanced Practice Nurse 10/31/21 Brigido Vaz MD #[address] [place] [address] Safety Investigator Cardiovascular Disease - Cardiology 11/16/21 07/21/24 yKle Vora MD #[address] [address] Consulting Physician Colon and Rectal Surgery 05/14/24 Demetria Woodall MD [address] [facility] [address] [address] Consulting Physician Cardiology 06/25/24 documented as of this encounter
--- OUTSIDE RECORDS SUMMARY | 2025-01-10 08:07 | XMS_ITS | Encounter Summary ---
Author Organization [facility] Address [address] [place] [address] Phone Care Team Providers Care Senior Applications Analyst Name Role Phone Milly Erickson APRN, CNP Primary Care Provid er Brigido Vaz MD Unavailable Kyle Panda MD Unavailable Demetria Woodall MD Unavailable Reason for Visit * Reason Comments Medication Refill Encounter Details Date Type Department Care Team (Late st Contact Info) Description 05/06/2023 Refill [facility] - Family Medicine [facility] #2 [place] [address] Jae Lopes MD #1 [place] [address] Medication Refill Social History Tobacco Use Types [...] Coronavirus/COVID-19? No / Unsure 04/10/2023 7:00 AM CHIEF DEPUTY CORONER documented as of this encounter Miscellaneous Notes * Telephone Encounter - Charlene Yousif RN - 05/07/2023 7:14 AM CST Name from pharmacy: TRULICITY 0.75MG/0.5ML SDP 0.5ML Will file in chart as: Trulicity 0.75 MG/0.5ML Solution Pen-injector The original prescription was reordered on 05/06/2023 by Milly Erickson APRN, KOBE. F DEPUTY CORONER * Telephone Encounter - Charlene Yousif RN - 05/06/2023 2:07 PM CST duplicate F DEPUTY CORONER documented in this encounter Plan of Treatment Upcoming Encounters Date Type Department Care Team (Late st Contact Info) Description 01/10/2025 1:30 PM CDT Office Visit [facility] Medical Group - Cardiology - [place] #2 [place] [address] Sarah Luong APRN, SAW FEEDER #2 [place] [address] 07/04/2025 10:30 AM CHIEF DEPUTY CORONER Office Visit [facility] - Family Medicine - [place] #2 [place] [address] Milly Erickson APRN, SAW FEEDER #[address] [address] documented as of this encounter Visit Diagnoses Diagnosis Type 2 diabetes mellitus without complication, without long-term current use of insulin documented in this encounter Care Teams Senior Applications Analyst Relationship Specialty Start Date End Date Milly Erickson APRN, KOBE #[address] [address] PCP - General Advanced Practice Nurse 10/31/21 Brigido Vaz MD #[address] [address] Ship Runner Cardiovascular Disease - Cardiology 11/16/21 07/21/24 Kyle Vora MD #[address] [address] Consulting Physician Colon and Rectal Surgery 05/14/24 Demetria Woodall MD [address] [address] Consulting Physician Cardiology 06/25/24 documented as of this encounter
--- OUTSIDE RECORDS SUMMARY | 2025-01-10 08:07 | XMS_ITS | Encounter Summary ---
Author Organization [facility] Address [address] [place] [address] Care Team Providers Care Insulation Blower Name Role Phone System, Pcp Not In Primary Care Provider Unavail Santa Cummins APN Primary Care Provider [phone] Encounter Details Date Type Department Care Team (Late st Contact Info) Description 12/10/2019 Orders Only [place] PROCESS ENVIRONMENTAL TECHNICIAN - [address], [address] [place] [address] Lakisha Mckeon APN [address] [place] [address] Social History Tobacco Use Types Packs/Day Years [...] Exposure Response Date Recorded In the last month, have you been in contact with someone who was confirmed or suspected to have Coronavirus / COVID-19? No / Unsure 11/17/2019 14:00 EDT documented as of this encounter Progress Notes * Lakisha Mckeon APN - 12/10/2019 1159 EDT Spoke with patient, she never took solosec, called in rx for metronidazole and instructed her to return for a test of cure in 2 weeks. documented in this encounter Plan of Treatment Not on file documented as of this encounter Visit Diagnoses Not on filedocumented in this encounter Additional Health Concerns Infection Onset Date Last Indicated Resolved Time COVID-19 Rule Out 03/20/2020 03/21/2020 03/22/2020 0:01 EDT COVID-19 Screening Pending 02/27/2021 02/27/2021 1 3:26 EDT documented as of this encounter Care Teams Insulation Blower Relationship Specialty Start Date End Date System, Pcp Not In PCP - General 10/06/17 01/31/20 Santa Vitale APN [address] [facility] [address] [place] [address] PCP - General Family Medicine 02/01/20 documented as of this encounter
--- OUTSIDE RECORDS SUMMARY | 2025-01-10 08:08 | XMS_ITS | Encounter Summary ---
Author Organization [facility] Address [address] [place] [address] Care Team Providers Care Chainstitch Sewing Machine Operator Name Role Phone GettingerSanta APN Primary Care Provider [phone] Reason for Referral * Consultation (Routine) - Closed Specialty Diagnoses / Procedures Referred By Contac t Referred To Contact Genetics Diagnoses Diverticulosis of large intestine without perforation or abscess without bleeding Personal history of colonic polyps Encounter for screening for malignant neoplasm of colon Family history of malignant neoplasm of digestive organs Encounter for screening for human immunodeficiency virus (HIV) Jc Crawford MD [address] [place] [address] Phone: tel: fax: Referral ID Status Reason Start Date Expiration Date V isits Requested Visits Authorized [id number] Closed Specialty Services Required 05/15/2020 11/13/2020 1 1 Encounter Details Date Type Department Care Team (Latest Contact Info) Description 05/15/2020 Transcribe Order [facility] Jc Crawford MD [address] [place], [place] [address] Family history of malignant neoplasm of digestive organs (Primary Dx); Diverticulosis of large intestine without perforation or abscess without bleeding; Personal history of colonic polyps; Encounter for screening for malignant neoplasm of colon; Encounter for screening for human immunodeficiency virus (HIV) Social History Tobacco Use Types Packs/Day Years Used Date Smoking Tobacco: Every Day Cigarettes Smokeless Tobacco: Never Alcohol Use Standard Drinks/Week Comments Not Currently 0 (1 standard drink = 0.6 oz pur e alcohol) 4 mo alcohol recovery Comments No Sex and Gender Information Value Date Recorded Sex Assigned at Not on file Legal Sex Female 8:46 EDT Gender Identity Not on file Sexual Orientation Not on file COVID-19 Exposure Response Date Recorded In the last month, have you been in contact with someone who was confirmed or suspected to have Coronavirus / COVID-19? No / Unsure 05/16/2020 16:11 EST documented as of this encounter Plan of Treatment Scheduled Referrals Name Type Priority Associated Diagnoses Orde r Schedule AMB REFERRAL TO GENETICS Outpatient Referral Routine Diverticulosis of large intestine without perforation or abscess without bleeding Personal history of colonic polyps Encounter for screening for malignant neoplasm of colon Family history of malignant neoplasm of digestive organs Encounter for screening for human immunodeficiency virus (HIV) Ordered: 05/15/2020 documented as of this encounter Visit Diagnoses Diagnosis Family history of malignant neoplasm of digestive organs- Primary Diverticulosis of large intestine without perforation or abscess without bleeding Diverticulosis of colon (without mention of hemorrhage) Personal history of colonic polyps Encounter for screening for malignant neoplasm of colon Special screening for malignant neoplasms, colon Encounter for screening for human immunodeficiency virus (HIV) Special screening examination for other specified viral diseases documented in this encounter Additional Health Concerns Infection Onset Date Last Indicated Resolved Time COVID-19 Screening Pending 02/27/2021 02/27/2021 1 3:26 EDT documented as of this encounter Care Teams Chainstitch Sewing Machine Operator Relationship Specialty Start Date End Date Santa Vitale APN [address] [facility] [address] [place] [address] PCP - General Family Medicine 02/01/20 documented as of this encounter
--- OUTSIDE RECORDS SUMMARY | 2025-01-10 08:08 | XMS_ITS | Encounter Summary ---
Author Organization [facility] Address [address] [place] [address] Phone Care Team Providers Care Dental Technician Name Role Phone Milly Erickson APRN, CNP Primary Care Provid er Kyle Vora MD Unavailable Demetria Woodall MD Unavailable Reason for Visit * Reason Comments Medication Refill Encounter Details Date Type Department Care Team (Late st Contact Info) Description 01/09/2025 Refill [facility] - Family Medicine [facility] #2 [place] [address] Milly Erickson APRN, CNP #[address] [address] Medication Refill Social History Tobacco Use Types Packs/Day Years Used Date Smoking Tobacco: Former Cigarettes 1 20.6 S tarted: 2004 Smokeless Tobacco: Never Comments:Everett pouch Alcohol Use Standard Drinks/Week Comments Not Currently 0 (1 standard drink = 0.6 oz pur e alcohol) [facility] Utilities Answer Date Recorded In the past 12 months has [employer], gas, oil, or water company threatened to shut off services in your home? No 08/19/2024 Social Connection and Isolation Panel Answer Date Recorded In a typical week, how many times do you talk on the phone with family, friends, or neighbors? More than three times a week 08/19/2024 How often do you get togethe r with friends or relatives? More than three times a week 08/19/2024 How often do you attend chur ch or adventist services? More than 4 times per year 08/19/2024 Do you belong to any clubs o r organizations such as spiritism groups, unions, fraternal or athletic groups, or school groups? Yes 08/19/2024 How often do you attend meet ings of the clubs or organizations you belong to? 1 to 4 times per year 08/19/2024 Are you , , di vorced, , never , or living with a partner? Living with partner 08/19/2024 Overall Financial Resource Strain (CARDIA) Answe r Date Recorded How hard is it for you to pa y for the very basics like food, housing, medical care, and heating? Not very hard 08/19/2024 PHQ-2 Answer Date Recorded Total Score - Questions 1-9 0 08/01 [facility] - Occupational Stress Questionnaire Answer Date Recorded Do you feel stress - tense, restless, nervous, or anxious, or unable to sleep at night because your mind is troubled all the time - these days? Only a little 08/19/2024 Exercise Vital Sign Answer Date Recorde d On average, how many days pe r week do you engage in moderate to strenuous exercise (like a brisk walk)? 2 days 08/19/2024 On average, how many minutes do you engage in exercise at this level? 90 min 08/19/2024 Hunger Vital Sign Answer Date Recorded Within the past 12 months, y ou worried that your food would run out before you got the money to buy more. Sometimes true Within the past 12 months, t he food you bought just didn't last and you didn't have money to get more. Sometimes true PRAPARE - Transportation Answer Date Re corded In the past 12 months, has l ack of transportation kept you from medical appointments or from getting medications? No 08/01 In the past 12 months, has l ack of transportation kept you from meetings, work, or from getting things needed for daily living? No 08/19/2024 Housing Stability Vital Sign Answer Thanh e Recorded In the last 12 months, was t here a time when you were not able to pay the mortgage or rent on time? No 08/19/2024 Number of Times Moved in the Last Year Not on fi le 08/19/2024 At any time in the past 12 m [facility], were you homeless or living in a long term (including now)? No 08/19/2024 AUDIT-C Answer Date Recorded Q1: How often do you have a drink containing alcohol? Never 12/27/2024 Q2: How many drinks containi ng alcohol do you have on a typical day when you are drinking? Patient does not drink Q3: How often do you have si x or more drinks on one occasion? Never 12/27/2024 Education Answer Date Recorded What is the highest level of school you have completed or the highest degree you have received? Some college, no degree 07/24/2022 Sexually Active Control Partners Comments Yes Male Comments No Sex and Gender Information Value Date Recorded Sex Assigned at Not on file Legal Sex Female 4:41 PM CDT Gender Identity Not on file Sexual Orientation Not on file documented as of this encounter Plan of Treatment Upcoming Encounters Date Type Department Care Team (Late st Contact Info) Description 01/10/2025 1:30 PM CDT Office Visit [facility] - Cardiology - [place] [address] [place] [phone] Sarah Luong APRN, EDUCATION PROGRAM ASSOCIATE #2 [place] [phone] 07/04/2025 10:30 AM HOSPITAL AIDE Office Visit [facility] - Family Medicine - [place] [address] [place] [address] Milly Erickson APRN, EDUCATION PROGRAM ASSOCIATE #[address] [phone] documented as of this encounter Visit Diagnoses Diagnosis Type 2 diabetes mellitus without complication, without long-term current use of insulin documented in this encounter Additional Health Concerns Assessment Noted Time PHQ-9 Depression Total Score: 0 08/20/19 10:03 AM CDT documented as of this encounter Care Teams Dental Technician Relationship Specialty Start Date End Date Milly Erickson APRN, KOBE #2 [facility] [address] [place] [address] PCP - General Advanced Practice Nurse 10/31/21 Kyle Vora MD #2 [facility] [address] [place] [address] Consulting Physician Colon and Rectal Surgery 05/14/24 Demetria Woodall MD [address] [address] Consulting Physician Cardiology 06/25/24 documented as of this encounter
--- OUTSIDE RECORDS SUMMARY | 2025-01-10 08:08 | XMS_ITS | Encounter Summary ---
Author Organization [facility] Address [address] [place] [address] Phone Care Team Providers Care Chef Assistant Name Role Phone Milly Erickson APRN, CNP Primary Care Provid er Brigido Vaz MD Unavailable Kyle Panda MD Unavailable Demetria Woodall MD Unavailable Reason for Visit * Reason Comments Medication Refill Encounter Details Date Type Department Care Team (Late st Contact Info) Description 10/14/2023 Refill [facility] - Family Medicine [facility] #[address] [place] [address] Milly Erickson APRN, CNP #[address] [address] Medication Refill Social History [...] Telephone Encounter - Charlene Yousif RN - 10/15/2023 8:03 AM CDT Medication(s) [facility] Medication Refill Standing Order for Pediatricand Adult Patients. Requested Prescriptions Pending Prescriptions Disp Refills atorvastatin (LIPITOR) 40 MG Tablet [Pharmacy Med Name: Atorvastatin Calcium 40 MG Oral Tablet] 100Tablet 2 Sig: TAKE 1 TABLET BY MOUTH DAILY Hmg CoA Reductase Inhibitors Protocol Passed - 10/14/2023 9:42 PM Passed - No positive test in the past 12 months or most recent test was negative Passed - Visit with relevant provider in past 12 months or upcoming 90 days Recent Visits Date Type Provider Dept 08/04/23 Office Visit Milly Erickson APRN, KOBE [facility] 03/10/23 Office Visit Milly Erickson APRN, KOBE [facility] 12/06/22 Office Visit Milly Erickson APRN, KOBE [facility] Showing recent visits within past 365 days and meeting all other requirements Future Appointments Date Type Provider Dept 12/08/23 Appointment Milly Erickson APRN, KOBE [facility] Showing future appointments within next 90 days [...] 206 (H) <130 mg/dL Final Passed - CMP in past 12 months SODIUM Date Value Ref Range Status 07/07/2023 140 136 - 145 mmol/L Final POTASSIUM Date Value Ref Range Status 07/07/2023 4.6 3.5 - 5.1 mmol/L Final CHLORIDE Date Value Ref Range Status 07/07/2023 109 (H) 98 - 107 mmol/L Final CO2, VENOUS Date Value Ref Range Status 07/07/2023 24 22 - 30 mmol/L Final ANION GAP Date Value Ref Range Status 07/07/2023 11.6 <18.0 mmol/L Final GLUCOSE Date Value Ref Range Status 07/07/2023 107 (H) 70 - 99 mg/dL Final BUN Date Value Ref Range Status 07/07/2023 10 10 - 20 mg/dL Final CREATININE, BLOOD Date Value Ref Range Status 07/07/2023 0.82 0.60 - 1.00 mg/dL Final BUN/CREATININE RATIO Date Value Ref Range Status 07/07/2023 12 12 - 20 ratio Final TOTAL PROTEIN Date Value Ref Range Status 07/07/2023 7.0 6.3 - 8.2 g/dL Final ALBUMIN Date Value Ref Range Status 07/07/2023 4.0 3.5 - 5.0 g/dL Final A/G RATIO Date Value Ref Range Status 07/07/2023 1.3 1.0 - 2.2 Final CALCIUM Date Value Ref Range Status 07/07/2023 8.9 8.7 - 10.5 mg/dL Final T BILI Date Value Ref Range Status 07/07/2023 0.2 0.2 - 1.2 mg/dL Final SGOT (AST) Date Value Ref Range Status 07/07/2023 20 5 - 34 U/L Final SGPT (ALT) Date Value Ref Range Status 07/07/2023 8 0 - 55 U/L Final ALKALINE PHOSPHATASE Date Value Ref Range Status 07/07/2023 67 40 - 150 U/L Final GFR, EST. NONAFRICAN Date Value Ref Range Status 07/07/2023 >60 >=60 Final GFR, EST. Date Value Ref Range Status 07/07/2023 >60 >=60 Final GFR, ESTIMATED Date Value Ref Range Status 07/07/2023 >60 >=60 Final Comment: Creatinine Clearance is the preferred criteria for selecting drug dose adjustments in renally impaired patients. The GFR is provided as additional pertinent clinical information. GFR is reported in mL/min/1.73 sq m. Calculation based on the Chronic Kidney Disease Epidemiology Collaboration (CKD- EPI) equation refitwithout adjustment for race. IS THE PATIENT REQUIRED TO BE FASTING? Date Value Ref Range Status 07/07/2023 No Final documented in this encounter Plan of Treatment Upcoming Encounters Date Type Department Care Team (Late st Contact Info) Description 01/10/2025 1:30 PM CDT Office Visit [facility] - Cardiology [facility] #2 [place] [address] Sarah Luong APRN, UTILITY ARBORIST #2 [place] [address] 07/04/2025 10:30 AM AIRCRAFT POWERTRAIN REPAIRER Office Visit [facility] - Family Medicine - [place] #2 [place] [address] Milly Erickson APRN, UTILITY ARBORIST #[address] [address] documented as of this encounter Visit Diagnoses Diagnosis Type 2 diabetes mellitus without complication, without long-term current use of insulin Mixed hyperlipidemia documented in this encounter Care Teams Chef Assistant Relationship Specialty Start Date End Date Milly Erickson APRN, UTILITY ARBORIST #2 [facility] [address] [place] [address] PCP - General Advanced Practice Nurse 10/31/21 Brigido Vaz MD #2 [facility] [address] [place] [address] Web Press Operator Helper Offset Cardiovascular [facility] - Cardiology 11/16/21 07/21/24 Kyle Vora MD #[address] [place] [address] Consulting Physician Colon and Rectal Surgery 05/14/24 Demetria Woodall MD [address] [address] Consulting Physician Cardiology 06/25/24 documented as of this encounter
--- OUTSIDE RECORDS SUMMARY | 2025-01-10 08:08 | XMS_ITS | Encounter Summary ---
Author Organization [facility] Address [address] [place] [address] Care Team Providers Care Polisher Dial Name Role Phone YudelkaerSanta APN Primary Care Provider [phone] Encounter Details Date Type Department Care Team (Late st Contact Info) Description 02/14/2020 Outpatient Orders Only [facility] Rheumatology, [address] [place] [phone] Provider, MD Rachel [address] [place] [address] Social History Tobacco Use Types Packs/Day Years [...] have Coronavirus / COVID-19? No / Unsure 02/01/2020 13:24 EDT documented as of this encounter Plan of Treatment Not on file documented as of this encounter Procedures Procedure Name Priority Date/Time Associated Diagnosis Comments SCANNED LAB - EXTERNAL Routine 01/21/2020 documented in this encounter Results * SCANNED LAB - EXTERNAL (01/21/2020) Blood us Historical Provider HEMATOLOGY ORDERABLES Fin al Result documented in this encounter Visit Diagnoses Not on filedocumented in this encounter Additional Health Concerns Infection Onset Date Last Indicated Resolved Time COVID-19 Rule Out 03/20/2020 03/21/2020 03/22/2020 0:01 EDT COVID-19 Screening Pending 02/27/2021 02/27/2021 1 3:26 EDT documented as of this encounter Care Teams Polisher Dial Relationship Specialty Start Date End Date Santa Vitale APN [address] [place] [address] PCP - General Family Medicine 02/01/20 documented as of this encounter
--- OUTSIDE RECORDS SUMMARY | 2025-01-10 08:08 | XMS_ITS | Encounter Summary ---
Author Organization [facility] Address [address] [place] [address] Care Team Providers Care Evening Anchor Name Role Phone GettingerSanta APN Primary Care Provider [phone] Reason for Referral * Specialty Diagnoses / Procedures Referred By Johnny t Referred To Contact [facility] Faculty [facility] Referral ID Status Reason Start Date Expiration Date Visits Re quested Visits Authorized Encounter Details Date Type Department Care Team (Late st Contact Info) Description 02/01/2020 Outpatient Orders Only [facility] Rheumatology[address] [place] [phone] ProviderRachel MD [address] [place] [address] Social History Tobacco Use Types Packs/Day Years [...] Name Priority Date/Time Associated Diagnosis Comments SCANNED REFERRAL FORM Routine 02/01/2020 documented in this encounter Results * SCANNED REFERRAL FORM (02/01/2020) us Historical Provider OUTPATIENT REFERRAL ORDER DOUGLAS Final Result documented in this encounter Visit Diagnoses Not on filedocumented in this encounter Additional Health Concerns Infection Onset Date Last Indicated Resolved Time COVID-19 Rule Out 03/20/2020 03/21/2020 03/22/2020 0:01 EDT COVID-19 Screening Pending 02/27/2021 02/27/2021 1 3:26 EDT documented as of this encounter Care Teams Evening Anchor Relationship Specialty Start Date End Date Santa Vitale APN [address] [facility] [address] [place] [address] PCP - General Family Medicine 02/01/20 documented as of this encounter
--- OUTSIDE RECORDS SUMMARY | 2025-01-10 08:08 | XMS_ITS | Encounter Summary ---
Author Organization [facility] Address [address] [place] [address] Phone Care Team Providers Care Head Banquet Waiter/Waitress Name Role Phone Milly Erickson APRN, CNP Primary Care Provid er Kyle Vora MD Unavailable Demetria Woodall MD Unavailable Encounter Details Date Type Department Care Team (Late st Contact Info) Description 08/23/2024 Transcribe Orders [facility] [address] [place] [address] Obie Walsh MD [facility] [place] [address] Social History Tobacco Use Types Packs/Day Years Used Date Smoking Tobacco: Former Cigarettes 1 20.6 S tarted: 2004 Smokeless Tobacco: Never Comments:Everett pouch Alcohol Use Standard Drinks/Week Comments Not Currently 0 (1 standard drink = 0.6 oz pur e alcohol) [facility] Utilities Answer Date Recorded In the past 12 months has [employer] electric, gas, oil, or water company threatened to [...] week 08/19/2024 How often do you attend [facility] or spiritism services? More than 4 times per year 08/19/2024 Do you belong to any clubs o r organizations such as scientology groups, unions, fraternal or athletic groups, or school groups? Yes 08/19/2024 How often do you attend meet ings of the clubs or organizations you belong to? 1 to 4 times per year 08/19/2024 Are you , , di vorced, , never , or living with a partner? Living with partner 08/19/2024 AUDIT-C Answer Date Recorded Q1: How often do you have a drink containing alcohol? Never 08/19/2024 Q2: How many drinks containi ng alcohol do you have on a typical day when you are drinking? Patient does not drink Q3: How often do you have si x or more drinks on one occasion? Never 08/19/2024 Overall Financial Resource Strain (CARDIA) Answe r Date Recorded How hard is it for you to pa y for the very basics like food, housing, medical care, and heating? Not very hard 08/19/2024 PHQ-2 Answer Date Recorded Total Score - Questions 1-9 0 08/01 [facility] - Occupational Stress Questionnaire Answer Date Recorded [...] any time in the past 12 m ont, were you homeless or living in a chcf (including now)? No 08/19/2024 Education Answer Date Recorded What is the [...] Description 01/10/2025 1:30 PM CDT Office Visit [facility] - Cardiology - [place] #[address] [place] [address] Sarah Luong APRN, CNP #[address] [place] [address] 07/04/2025 10:30 AM FARMWORKER LIVESTOCK [facility] - [place] #[address] [place] [address] Milly Erickson APRN, CNP [address] [address] documented as of this encounter Visit Diagnoses Not on filedocumented in this encounter Additional Health Concerns Assessment Noted Time PHQ-9 Depression Total Score: 0 08/20/19 25 10:03 AM CDT documented as of this encounter Care Teams Head Banquet Waiter/Waitress Relationship Specialty Start Date End Date Milly Erickson APRN, KOBE #2 [facility] [address] [place] [address] PCP - General Advanced Practice Nurse 10/31/21 Kyle Vora MD #2 [facility] [address] [place] [address] Consulting Physician Colon and Rectal Surgery 05/14/24 Demetria Woodall MD [address] [address] Consulting Physician Cardiology 06/25/24 documented as of this encounter
--- OUTSIDE RECORDS SUMMARY | 2025-01-10 08:08 | XMS_ITS | Encounter Summary ---
Author Organization [facility] Address [address] [facility] [place] [address] Phone Care Team Providers Care Heel Molder Name Role Phone Milly Erickson APRN, CNP Primary Care Provid er Kyle Vora MD Unavailable Demetria Woodall MD Unavailable Encounter Details Date Type Department Care Team (Late st Contact Info) Description 12/21/2024 Telephone [facility] - Cancer Center Oncology Services [address] [place] [address] Milly Erickson APRN, CNP #[address] [address] Social History Tobacco Use Types Packs/Day Years Used Date Smoking Tobacco: Former Cigarettes 1 20.6 S tarted: 2004 Smokeless Tobacco: Never Comments:Everett pouch Alcohol Use Standard Drinks/Week Comments Not Currently 0 (1 standard drink = 0.6 oz pur e alcohol) [facility] Utilities Answer Date Recorded In the past 12 months has e electric, gas, oil, or water company threatened [...] often do you attend chur ch or roman catholic services? More than 4 times per year 08/19/2024 Do you belong to any clubs o r organizations such as bahai groups, unions, fraternal or athletic groups, or [...] Total Score - Questions 1-9 0 08/01 [facility] - Occupational [...] any time in the past 12 m onths, were you homeless or living in a long term (including now)? No 08/19/2024 Education Answer Date [...] encounter Miscellaneous Notes * Telephone Encounter - Radha Boyle RMA - 12/21/2024 10:36 AM CDT I was able to reach this patient today. She is having the follow up done at [facility] as we are booked out to the end of December and do not have a template as of yet for the new radiology group coming in. All imaging and orders will be sent to their facility. documented in this encounter Plan of Treatment Upcoming Encounters Date Type Department Care Team (Late st Contact Info) Description 01/10/2025 1:30 PM CDT [facility] - [facility] - [place] #2 [place] [phone] Sarah Luong APRN, DOBBY LOOMS PEGGER #[address] [place] [address] 07/04/2025 10:30 AM AUTOMOTIVE FINANCE MANAGER [facility] - Family Medicine - [place] #[address] [place] [address] Milly Erickson APRN, DOBBY LOOMS PEGGER #2 [place] [facility] [address] [place] [address] documented as of this encounter Visit Diagnoses Not on filedocumented in this encounter Additional Health Concerns Assessment Noted Time PHQ-9 Depression Total Score: 0 08/20/19 10:03 AM CDT documented as of this encounter Care Teams Heel Molder Relationship Specialty Start Date End Date Milly Erickson APRN, DOBBY LOOMS PEGGER #[address] [address] [address] PCP - General Advanced Practice Nurse 10/31/21 Kyle Vora MD #[address] [place] [address] [address] Consulting Physician Colon and Rectal Surgery 05/14/24 Demetria Woodall MD 2 [facility] [place] [address] [address] Consulting Physician Cardiology 06/25/24 documented as of this encounter
--- OUTSIDE RECORDS SUMMARY | 2025-01-10 08:08 | XMS_ITS | Clinical Summary ---
Author Organization [facility] Address [address] [place] [address] Care Team Providers Care Nuclear Equipment Research Engineer Name Role Phone Santa Vitale APN Primary Care Provider [phone] Allergies No known active allergies Medications nystatin-triamci nolone (MYCOLOG II) cream Apply to area bid x 7 days Repeat as needed 30 g 1 11/17/2019 Active naltrexone (REVIA) 50 MG tablet 12/09/2019 Active atorvastatin (LIPITOR) 10 MG tablet Take 20 mg by mouth daily at 6pm Active lisinopril (PRINIVIL, ZESTRIL) 2.5 MG tablet Take 5 mg by mouth daily Active metFORMIN (GLUCOPHAGE) 500 MG tablet Take 500 mg by mouth 2 times daily (with meals) Active Multiple Vitamin (MULTIVITAMINS PO) by mouth Active aspirin 81 MG chewable tablet Take 81 mg by mouth daily Active Active Problems Problem Noted Date Diagnosed Date Rectal polyp 03/23/2020 Abnormal uterine bleeding (AUB) 02/24/2018 Immunizations Immunization Administration Dates Next Due Muse Covid-19 Vaccine Bnt1 62b2 Im Injection 04/09/2021,09/18/2020,08/28/2020 Family History Medical History Relation Name Comments Prostate Cancer Father Leukemia Maternal Uncle Colon Cancer Mother Melanoma Paternal Cousin Diabetes Sister 1 Melanoma Sister 2 Relation Name Status Comments Father (Age 70) Maternal Grandfather (Age 70) Maternal Grandmother september had a female cancer Maternal Uncle (Age 40) Mother (Age 52) Paternal Aunt Alive Paternal Cousin Alive Paternal Grandfather (Age 75) Paternal Grandmother (Age 85) Sister 1 Sister 2 Alive Social History Tobacco Use Types Packs/Day Years [...] on file Sexual Orientation Not on file Last Filed Vital Signs Vital Sign Reading Time Taken Comments Blood Pressure 110/70 04/24/2021 1003 EST Pulse 92 04/05/2021 1130 EDT Temperature 36.1 C (97 F) 04/05/2021 0957 EDT Respiratory Rate 15 04/05/2021 1130 EDT Oxygen Saturation 95% 04/05/2021 1130 EDT Inhaled Oxygen Concentration - - Weight 65.8 kg (145 lb) 04/24/2021 1003 EST Height 154.9 cm (5' 1) 04/24/2021 1003 EST Body Mass Index 27.4 04/24/2021 1003 EST Plan of Treatment Health Maintenance Due Date Last Done Comments Wellness Exam 02/18/1971 Yearly Depression Screen 1980 Pneumococcal Immunization 50+ (1 of 2 - PCV) 02/18/1987 TETANUS / TDAP SHOT 02/18/1987 CT Colonography 02/18/2018 FIT-DNA 02/18/2018 Fecal Occult Blood Test (FOBT) 02/18/2018 Shingrix Vaccine (1 of 2) 02/18/2018 MAMMOGRAPHY 02/07/2022 02/07/2021, 090 12/2020, 02/08/2020, Additional history exists COVID-19 (SARS-CoV-2) Vaccine ( season) 2024 04/09/2021, 09/18/2020, 08/28/2020 FLU VACCINE (#1) 01/31/2025 02/11/2022 PAPSMEAR 02/22/2025 02/22/2022, 09/0 11/2020, 01/18/2019, Additional history exists Flexible Sigmoidoscopy 03/23/2025 03/23/2020 Colonoscopy 03/19/2031 03/19/2021, 02/01, 02/28/2020 Colorectal Cancer Screening 03/19/2031 Meningococcal Vaccine Aged Out No meaghan emilia eligible based on patient's age to complete this topic Medical Devices Implanted Type Area Renderer Device Identifier Shelf Expiration Date Model / Serial / Lot Clip Hemo Resolution 360 235cm - [id number] Implanted:Qty: 1 on 03/23/2020 by Zoila Sherman MD at [facility] Other - impl [employer] 01/01/2023 [id number] / / Clip Hemo Resolution 360 235cm - [id number] Implanted:Qty: 1 on 03/23/2020 by Zoila Sherman MD at [facility] Other - impl [employer] 11/07/2022 [id number] / / Procedures Procedure Name Priority Date/Time Associated Diagnosis Comments IGP, APTIMA HPV Routine 02/06/2021 9:28 EDT Encounter for gynecological examination without abnormal finding FLEXIBLE SIGMOIDOSCOPY 03/23/2020 from Last 3 Months or Most Recently Relevant to Health Maintenance Results * (ABNORMAL) IGP, APTIMA HPV (02/06/2021 9:28 EDT) DIAGNOSIS: Comment [facility] Comment: NEGATIVE FOR INTRAEPITHELIAL LESION OR MALIGNANCY. THE CYTOLOGY PROCESSING WAS PERFORMED AT THE [facility]AC[facility] LOCATED AT [address] [place] [id number]. Specimen adequacy: Comment [facility] Comment:Satisfactory for leandra luation. No endocervical component is identified. Clinician provided ICD10: Comment [facility] Comment:Z01.419 Performed by: Comment [facility] Comment:Yvette Church, Cytot echnologist (ASCP) . . [facility] Comment Comment [facility] Comment: The Pap smear is a screening test designed to aid in the detection of premalignant and malignant conditions of the uterine cervix. It is not a diagnostic procedure and should not be used as the sole means of detecting cervical cancer. Both false-positive and false-negative reports do occur. Test Methodology: Comment [facility] Comment: This liquid based ThinPrep(R) pap test was screened with the use of an image guided system. HPV Aptima Positive(A ) Negative [facility] 3 Comment: This nucleic acid amplification test detects fourteen high-risk HPV types (16,18,31,33,35,39,45,51,52,56,58,59,66,68) without differentiation. Cerv 02/06/2021 9:28 EDT 02/06/2021 Comment:Cerv Narrative [facility] - 02/10/2021 7:35 EDT Performed at: - [facility] [address] [id number] Sales Operations Associate: Christos Joshi MD, Phone: [phone] Performed at: - [address] [id number] Sales Operations Associate: Ginny Ferrara MD, Phone: [phone] Performed at: - [facility] [id number] Sales Operations Associate: Ginny Ferrara MD, Phone: [phone] Specimen Comment: Source.............Cervix Specimen Comment: No. of containers..01 ThinPrep Vial Mike Tucker MD PATHOLOGY/CYTOLOGY ORDERABLES Final Result [facility] * FLEXIBLE SIGMOIDOSCOPY (03/23/2020) 03/23/2020 Zoila Sherman MD SCANNED HISTORICAL DOCUMENTS Fin al Result from Last 3 Months or Most Recently Relevant to Health Maintenance Care Teams Nuclear Equipment Research Engineer Relationship Specialty Start Date End Date Santa Vitale APN 0 [facility] [address] [place] [address] PCP - General Family Medicine 02/01/20
--- OUTSIDE RECORDS SUMMARY | 2025-01-10 08:08 | XMS_ITS | Clinical Summary ---
Author Organization [facility] Address [address] [place] [address] Phone Care Team Providers Care Research Manager Name Role Phone Milly Erickson APRN, KOBE Primary Care Provid er Kyle Vora MD Unavailable Demetria Woodall MD Unavailable Allergies No known active allergies Medications Misc. Devices MiscIndication s:Type 2 diabetes mellitus without complication, without long-term current use of insulin Supply and instructions: 1 Each 11/30/19 22 Active Glucose Blood StripIndicatio ns:Type 2 diabetes mellitus without complication, without long-term current use of insulin 1 Strip by Does not apply route daily. USE DIRECTED 30 Strip 11 11/30/19 22 Active ezetimibe (ZETIA) 10 MG Tablet Take 1 Tablet by mouth daily. 90 Tablet 3 06/25/19 25 Active rosuvastatin (CRESTOR) 40 MG Tablet Take 1 Tablet by mouth daily. 90 Tablet 3 06/25/19 25 Active meloxicam (MOBIC) 7.5 MG Tablet as needed for Moderate or more severe pain. 09/19/19 25 Active Trulicity 0.75 MG/0.5ML Solution Auto-injectorI ndications:Typ e 2 diabetes mellitus without complication, without long-term current use of insulin INJECT 0.5 ML SUBCUTANEOUSLY ONCE A WEEK 4 mL 12/07/19 25 Active Repatha SureClick 140 MG/ML Solution Auto-injector ADMINISTER 1 ML UNDER THE SKIN EVERY 14 DAYS 12/07/19 Active ketoconazole (NIZORAL) 2 % Cream APPLY TOPICALLY TO THE AFFECTED AREA DAILY UNTIL CLEARED THEN NEEDED FOR FLARES 12/10/19 Active tretinoin (RETIN-A) 0.025 % Cream APPLY PEA SIZED AMOUNT TOPICALLY TO THE AFFECTED AREA OF FACE EVERY OTHER NIGHT. INCREASE TO EVERY NIGHT TOLERATED 12/10/19 Active MINOXIDIL PO Apply 5 % daily. Active Diclofenac Sodium (VOLTAREN) 1 % Gel Apply 2 g 4 times daily. 100 g 1 04/19/20 24 025 Discontin ued(Med List Clean Up) Active Problems Problem Noted Date Diagnosed Date Coronary artery calcification 06/25/2024 Pure hypercholesterolemia 06/25/2024 Exertional dyspnea 06/25/2024 Family history of premature CAD 06/25/2024 Murmur, cardiac 06/25/2024 Splenic artery aneurysm 06/16/2024 Tobacco use 03/10/2023 Rectal polyp 03/23/2020 Encounters Date Type Department Care Team Description 01/09/2025 Refill [facility] [address] [place] [address] Milly Erickson APRN, CNP Medication Refill 12/27/2024 10:45 AM CDT Office Visit [facility] [address] [place] [address] Milly Erickson APRN, CNP Type 2 diabetes mellitus without complication, without long-term current use of insulin (Primary Dx); Splenic artery aneurysm (HCC); Mixed hyperlipidemia; Coronary artery calcification seen on CAT scan; Chronic bilateral thoracic back pain; Large breasts Discharge Disposition: Discharged to home or Selfcare 12/27/2024 Travel 12/21/2024 [facility]phone [facility] [address] [place] [address] Milly Erickson APRN, CNP 12/21/2024 Transcribe Orders [facility] Mammography [address] [place] [address] Milly Erickson APRN, KOBE Abnormal mammogram (Primary Dx) 12/20/2024 Results Follow-Up [facility] [address] [place] [address] Milly Erickson APRN, KOBE NEENA SCREENING BILATERAL DIGITAL W CAD W ROCKY 12/20/2024 Transcribe [facility] [address] [place] [address] Milly Erickson APRN, KOBE Abnormal screening mammogram (Primary Dx) 12/16/2024 12:58 PM CDT - 12/16/2024 11:59 PM CDT [facility] [address] [place] [address] Ana Paula Mayfield, BRENDAN Discharge Disposition: Discharged to home or Selfcare 12/16/2024 Travel 12/13/2024 12:54 PM CDT - 12/13/2024 11:59 PM CDT [facility] [address] [place] [address] Provider, Not On File Discharge Disposition: Discharged to home or Selfcare 12/13/2024 12:53 PM CDT [facility] [address] [place] [address] Provider, Not On File Discharge Disposition: Discharged to home or Selfcare 12/04/20[facility] [place] [address] Milly Erickson APRN, KOBE Medication Refill 12/02/2024 1:21 PM CDT - 12/02/2024 11:59 PM CDT [facility] [address] [place] [address] Milly Erickson APRN, SODA COLUMN OPERATOR Discharge Disposition: Discharged to home or Selfcare 12/02/2024 Travel 11/08/2024 Refill [facility] [address] [place] [address] Milly Erickson APRN, KOBE Medication Refill 10/29/2024 9:30 AM CDT - 10/29/2024 11:59 PM CDT [facility] Nuclear Medicine [address] [place] [address] Demetria Woodall MD Discharge Disposition: Discharged to home or Selfcare 10/29/2024 9:00 AM CDT - 10/29/2024 9:29 AM CDT [facility] Cardiology Stress [address] [place] [address] Demetria Woodall MD Discharge Disposition: Discharged to home or Selfcare 10/29/2024 8:45 AM CDT - 10/29/2024 8:59 AM CDT [facility] [address] [place] [address] Demetria Woodall MD Discharge Disposition: Discharged to home or Selfcare 10/29/2024 8:30 AM CDT - 10/29/2024 8:44 AM CDT [facility] [address] [place] [address] Demetria Woodall MD Discharge Disposition: Discharged to home or Selfcare 10/29/2024 Results Follow-Up [facility] Cardiology Services [address] [place] [address] Demetria Woodall MD NM CARD MULTI SPECT WITH WALL MOTION AND EJECTION FRACTION, ADULT CV STRESS TREADMILL W NUC MED 10/28/2024 Travel 10/15/20[facility] [place] [address] Milly Erickson APRN, KOBE Medication Refill from Last 3 Months Immunizations Immunization Administration Dates Next Due Influenza Vaccine, Quadrivalent, PF 02/11/2022 Influenza,Split Virus,Trivalent,Injectable,PF Pneumococcal conjugate PCV20 , polysaccharide [id number] conjugate, adjuvant, PF 08/06/2022 TDAP Vaccine 06/02/2017 Family History Medical History Relation Name Comments No Known Problems Daughter Cancer Father Kaushik Prostate Cancer Father Kaushik Diabetes Maternal Grandfather CJ Diabetes Maternal Grandmother Ana Laura Cancer Mother Ana Laura Crawford Colon Cancer Mother Ana Laura Crawford No Known Problems Sister 1 Diabetes Sister 2 Mahnaz Kidney Disease Sister 2 Mahnaz dialysis Drug Abuse Son drug overdose Son Relation Name Status Comments Daughter Alive Father Kaushik Maternal Grandfather CJ Maternal Grandmother Ana Laura Mother Ana Laura Crawford Paternal Grandfather Paternal Grandmother Sister 1 Alive Sister 2 Mahnaz Son Social History Tobacco Use Types Packs/Day Years Used Date Smoking Tobacco: Former Cigarettes 1 20.6 S tarted: 2004 Smokeless Tobacco: Never Comments:[place]verett pouch Alcohol Use Standard Drinks/Week Comments Not Currently 0 (1 standard drink = 0.6 oz pur e alcohol) [facility] Utilities Answer Date Recorded In the past 12 months has [employer], gas, oil, or water [employer] threatened to shut off services in your [...] often do you attend chur ch or methodist services? More than 4 times per year 08/19/2024 Do you belong to any clubs o r organizations such as mosque groups, unions, fraternal or athletic groups, or [...] Total Score - Questions 1-9 0 08/01 [facility] - Occupational Stress Questionnaire Answer Date Recorded [...] any time in the past 12 m [facility], were you homeless or living in a penitentiary (including now)? No 08/19/2024 AUDIT-C Answer Date [...] Sign Reading Time Taken Comments Blood Pressure 118/70 12/27/2024 10:47 AM CDT Pulse 96 12/27/2024 10:47 AM CDT Temperature 36.4 C (97.6 F) 12/27/2024 10:47 AM CDT Respiratory Rate 16 12/27/2024 10:47 AM CDT Oxygen Saturation 96% 12/27/2024 10:47 AM CDT Inhaled Oxygen Concentration - - Weight 62.1 kg (137 lb) 12/27/2024 10:47 AM CDT Height 154.9 cm (5' 1) 12/27/2024 10:47 AM CDT Body Mass Index 25.89 12/27/2024 10:47 AM CDT Plan of Treatment Upcoming Encounters Date Type Department Care Team (Late st Contact Info) Description 01/10/2025 1:30 PM CDT Office Visit [facility] - Cardiology - [place] [address] [place] [id number] Sarah Luong APRN, SODA COLUMN OPERATOR [address] [place] [phone] 07/04/2025 10:30 AM TOP STOP ATTACHER Office Visit [facility] - Family Medicine - [place] [address] [place] [phone] Milly Erickson APRN, SODA COLUMN OPERATOR [address] [id number] Health Maintenance Due Date Last Done Comments Diabetes: Foot Exam 1970 Cologuard 02/18/2013 Immunochemical Fecal Occult Blood 02/18/2013 Zoster Immunization (1 of 2) 02/18/2018 Cervical Cancer Screening (CCS) 02/22/2023 Pap Smear 02/22/2023 02/22/2022, 02/06/2021 Influenza Immunization (#1) 2025 04/19/2024, 0 02/11/2022 Diabetes: Eye Exam 04/03/2025 04/03/2024 Diabetes: Hemoglobin A1c 06/29/2025 025, 08/19/2024, 04/21/2024, Additional history exists Diabetes: Nephropathy Screening 09/16/2025 09/16/2024, 04/21/2024, 04/21/2024, Additional history exists Mammogram 12/02/2025 12/02/2024 HPV/Cotest 02/22/2027 02/22/2022 Td Immunization Every 10 Years (Adults With 1 Tdap) 06/02/2027 06/02/2017 Colonoscopy 06/28/2029 06/28/2024, 06/03, 02/28/2020 Colorectal Cancer Screening 06/28/2029 Respiratory Syncytial Virus (RSV) Immunization (Adult) (1 - 1-dose 75+ series) 02/18/2043 DTaP/Tdap/Td Immunization Discontinued 06/02/2017 SARS-COV-2 Immunization Discontinued 04/09/20 21, 09/18/2020, 08/28/2020 Pneumococcal Immunization (50+ years) Completed 08/06/2022 Pneumococcal Immunization Combined Discontinued 08/06/2022 Lung Cancer Screening Discontinued 05/21/2024 Hepatitis B Immunization Discontinued Hepatitis C Virus (HCV) Screening Discontinued Human Papillomavirus (HPV) Immunization Aged Out No longer eligible based on patient's age to complete this topic Meningococcal Immunization (ACWY) Aged Out No longer eligible based on patient's age to complete this topic Rotavirus Immunization Aged Out No lo nger eligible based on patient's age to complete this topic Procedures Procedure Name Priority Date/Time Associated Diagnosis Comments POCT GLYCOSYLATED HEMOGLOBIN Routine 12/27/2024 11:15 AM CDT Type 2 diabetes mellitus without complication, without long-term current use of insulin CT ABDOMEN W/ CONTRAST Routine 12/16/2024 1:22 PM CDT Splenic artery aneurysm (HCC) POCT CREATININE Routine 12/16/2024 1:13 PM CDT NEENA REFERENCE IMAGES FOR IMAGE IMPORT Routine 12/13/2024 12:54 PM CDT NEENA REFERENCE IMAGES FOR IMAGE IMPORT Routine 12/13/2024 12:53 PM CDT NEENA SCREENING BILATERAL DIGITAL W CAD W ROCKY Routine 12/02/2024 1:49 PM CDT Visit for screening mammogram NM CARD MULTI SPECT WITH WALL MOTION AND EJECTION FRACTION Routine 10/29/2024 9:48 AM CDT Pure hypercholesterolemia Coronary artery calcification Exertional dyspnea Tobacco use Family history of premature CAD ADULT CV STRESS TREADMILL W NUC MED Routine 10/29/2024 9:25 AM CDT Pure hypercholesterolemia Coronary artery calcification Exertional dyspnea Tobacco use Family history of premature CAD CMP (COMPREHENSIVE METABOLIC PANEL) Routine 09/16/2024 1:41 PM CDT Type 2 diabetes mellitus without complication, without long-term current use of insulin CT CHEST SCREENING WO Routine 05/21/2024 1:12 PM TOP STOP ATTACHER Screening for lung cancer PATHOLOGY CYTOLOGY DIRECTOR PRODUCT MANAGEMENT Routine 02/22/2022 11:02 AM CDT Encounter for gynecological examination without abnormal finding HUMAN PAPILLOMA VIRUS (HPV) Routine 02/22/2022 11:01 AM CDT Encounter for gynecological examination without abnormal finding Encounter for screening for human papillomavirus (HPV) HM COLONOSCOPY 02/28/2020 12:00 AM CDT from Last 3 Months or Most Recently Relevant to Health Maintenance Results * (ABNORMAL) POCT GLYCOSYLATED HEMOGLOBIN (12/27/2024 11:15 AM CDT) HGB-A1C 6.1(A) 4 - 6 % Blood 12/27/2024 11:1 5 AM CDT us Milly Erickson MAINTENANCE SHOP WELDER, SODA COLUMN OPERATOR POINT OF CARE TESTIN G (MANUAL) Final Result * CT ABDOMEN W/ CONTRAST (12/16/2024 1:22 PM CDT) Anatomical Region Laterality Modality Abdomen N/A Computed Tomogra phy 01/06/2025 5:46 AM CDT Impressions 01/06/2025 5:48 AM CDT IMPRESSION: 1. No acute finding. 2. Stable 1 cm rim calcified splenic artery aneurysm. 3. 0.5 cm nonobstructing upper pole right renal stone. Narrative 01/06/2025 5:48 AM CDT EXAM DESCRIPTION: CT ABDOMEN W/ CONTRAST REASON FOR STUDY: follow up on splenic artery aneurysm seen on ld lung ct 05/2024. Hx DM, melanoma and smoker. TECHNIQUE: CT scan of the abdomen performed with intravenous and without oral contrast using helical scanning technique with dynamic intravenous contrast injection. Reconstructed coronal and sagittal MPR images reviewed. All images stored on PACS. Automated exposure control was used as a dose optimization technique for this examination. CONTRAST TYPE/DOSE: 100mL of IOPAMIDOL 76 % IV SOLN injected via Intravenous COMPARISON: 12/24/2022 ultrasound abdomen, 05/21/2024 CT chest FINDINGS: LOWER CHEST: No significant pulmonary abnormalities. No effusion. LIVER: Normal size. No identified cystic or solid masses. GALLBLADDER: Normally distended BILE DUCTS: No intrahepatic or extrahepatic ductal dilatation. SPLEEN: Normal size. No focal lesions. Splenic hilum again demonstrates rim calcification along the splenic artery. Subtle underlying pseudo aneurysm measuring 1 cm is unchanged. PANCREAS: No identified cystic or solid masses. No significant calcifications. No adjacent inflammation or peripancreatic fluid collections. Pancreatic duct not dilated. ADRENALS: Normal. KIDNEYS/URINARY TRACT: Right kidney demonstrates no obstructing stone hydronephrosis or hydroureter. Upper pole caliceal 0.5 cm nonobstructing stone identified. Left kidney demonstrates no obstructing stone, hydronephrosis or hydroureter. GI: No dilated bowel loops. No obvious wall thickening. No significant diverticular disease. PERITONEUM: No ascites or free air. RETROPERITONEUM: No mass or adenopathy. VASCULATURE: No abdominal aortic aneurysm. MUSCULOSKELETAL: No acute finding. OTHER: No significant abnormality. THIS IS AN ELECTRONICALLY VERIFIED FINAL REPORT 01/06/2025 5:46 AM - Electronically signed by Mendel Baca M.D. RB: KIEL Report ID: [id number] Reading Location: [place] [address] Procedure Note Mendel Baca MD - 01/06/2025 EXAM DESCRIPTION: CT ABDOMEN W/ CONTRAST REASON FOR STUDY: follow up on splenic artery aneurysm seen on ld lung ct 05/2024. Hx DM, melanoma and smoker. TECHNIQUE: CT scan of the abdomen performed with intravenous and without oral contrast using helical scanning technique with dynamic intravenous contrast injection. Reconstructed coronal and sagittal MPR images reviewed. All images stored on PACS. Automated exposure control was used as a dose optimization technique for this examination. CONTRAST TYPE/DOSE: 100mL of IOPAMIDOL 76 % IV SOLN injected via Intravenous COMPARISON: 12/24/2022 ultrasound abdomen, 05/21/2024 CT chest FINDINGS: LOWER CHEST: No significant pulmonary abnormalities. No effusion. LIVER: Normal size. No identified cystic or solid masses. GALLBLADDER: Normally distended BILE DUCTS: No intrahepatic or extrahepatic ductal dilatation. SPLEEN: Normal size. No focal lesions. Splenic hilum again demonstrates rim calcification along the splenic artery. Subtle underlying pseudo aneurysm measuring 1 cm is unchanged. PANCREAS: No identified cystic or solid masses. No significant calcifications. No adjacent inflammation or peripancreatic fluid collections. Pancreatic duct not dilated. ADRENALS: Normal. KIDNEYS/URINARY TRACT: Right kidney demonstrates no obstructing stone hydronephrosis or hydroureter. Upper pole caliceal 0.5 cm nonobstructing stone identified. Left kidney demonstrates no obstructing stone, hydronephrosis or hydroureter. GI: No dilated bowel loops. No obvious wall thickening. No significant diverticular disease. PERITONEUM: No ascites or free air. RETROPERITONEUM: No mass or adenopathy. VASCULATURE: No abdominal aortic aneurysm. MUSCULOSKELETAL: No acute finding. OTHER: No significant abnormality. THIS IS AN ELECTRONICALLY VERIFIED FINAL REPORT 01/06/2025 5:46 AM - Electronically signed by Mendel Baca M.D. RB: KIEL Report ID: [id number] Reading Location: [id number] IMPRESSION: 1. No acute finding. 2. Stable 1 cm rim calcified splenic artery aneurysm. 3. 0.5 cm nonobstructing upper pole right renal stone. us Ana Paula Mayfield PAC IMG CT ORDERABLES Final Result * POCT Creatinine (12/16/2024 1:13 PM CDT) CREATININE - POCT 0.9 0.6 - 1.3 mg/dL 12/16/2024 1:16 PM CDT [facility] Blood 12/16/2024 1:13 PM CDT 12/16/2024 1:16 PM CDT us None Provider POINT OF CARE TESTING Final Resu lt [facility] [address] [place] [address] * [facility] REFERENCE IMAGES FOR IMAGE IMPORT (12/13/2024 12:54 PM CDT) Only the most recent of2 resultswithin the time period is included. us Not On File Provider IMG MAMMO ORDERABLES Final Result * [facility] SCREENING BILATERAL DIGITAL W CAD W ROCKY (12/02/2024 1:49 PM CDT) Anatomical Region Laterality Modality breast Bilateral Mammography 12/02/2024 1:42 PM CDT Narrative 12/15/2024 12:08 PM CDT - NEENA SCREENING BILATERAL DIGITAL W CAD W ROCKY BILATERAL DIGITAL SCREENING MAMMOGRAM 3D/2D WITH CAD WITH MEDIOLATERAL OBLIQUE CRANIOCAUDAL: 12/02/2024 The study was acquired using digital technology and interpreted from soft copy. Current study was also evaluated with ICAD version 7.2. 2D digital mammographic views, as well as 3D digital tomosynthesis were performed in the CC and MLO projections. CLINICAL: Routine screening. Patient has no complaints. Personal history of melanoma on her back. No family history of breast cancer. COMPARISONS: Comparison is made to prior exams. BREAST TISSUE:There are scattered areas of fibroglandular density. FINDINGS: There are benign calcifications in both breasts. There also are benign vascular calcifications in both breasts. There is an oval mass in the right breast at 10 o'clock middle depth. No other significant masses, calcifications, or other findings are seen in either breast. IMPRESSION: INCOMPLETE: NEED ADDITIONAL IMAGING EVALUATION The mass in the right breast needs additional evaluation. An immediate follow-up is recommended with right breast sonography. A letter will be sent to the patient with these results. Electronically signed by: Sandy Chopra M.D. ll/:12/15/2024 10:48:53 Busperson(s): RT Chai(R)(M), [facility] letter sent: Additional Imaging Reading location: [facility] Mammogram BI-RADS: Category 0: Incomplete: Need Additional Imaging Evaluation Procedure Note Sandy Chopra MD - 12/15/2024 - NEENA SCREENING BILATERAL DIGITAL W CAD W ROCKY BILATERAL DIGITAL SCREENING MAMMOGRAM 3D/2D WITH CAD WITH MEDIOLATERAL OBLIQUE CRANIOCAUDAL: 12/02/2024 The study was acquired using digital technology and interpreted from soft copy. Current study was also evaluated with ICAD version 7.2. 2D digital mammographic views, as well as 3D digital tomosynthesis were performed in the CC and MLO projections. CLINICAL: Routine screening. Patient has no complaints. Personal history of melanoma on her back. No family history of breast cancer. COMPARISONS: Comparison is made to prior exams. BREAST TISSUE:There are scattered areas of fibroglandular density. FINDINGS: There are benign calcifications in both breasts. There also are benign vascular calcifications in both breasts. There is an oval mass in the right breast at 10 o'clock middle depth. No other significant masses, calcifications, or other findings are seen in either breast. IMPRESSION: INCOMPLETE: NEED ADDITIONAL IMAGING EVALUATION The mass in the right breast needs additional evaluation. An immediate follow-up is recommended with right breast sonography. A letter will be sent to the patient with these results. Electronically signed by: Sandy Chopra M.D. ll/:12/15/2024 10:48:53 Busperson(s): RT Chai(R)(M), [facility] letter sent: Additional Imaging Reading location: [facility] Mammogram BI-RADS: Category 0: Incomplete: Need Additional Imaging Evaluation us Milly Erickson MAINTENANCE SHOP WELDER, SODA COLUMN OPERATOR IMG MAMMO ORDERABLES Final Result * NM CARD MULTI SPECT WITH WALL MOTION AND EJECTION FRACTION (10/29/2024 9:48 AM CDT) Anatomical Region Laterality Modality CARDIO N/A Nuclear Medicine 10/29/2024 3:39 PM CDT Impressions 10/29/2024 3:42 PM CDT IMPRESSION: Normal myocardial perfusion study. No scintigraphic evidence of myocardial ischemia. Normal left ventricular ejection fraction of greater than 75 %. Normal wall motion. Narrative 10/29/2024 3:42 PM CDT EXAM DESCRIPTION: NM CARD MULTI SPECT WITH WALL MOTION AND EJECTION FRACTION REASON FOR STUDY: Coronary artery calcification. RADIOPHARMACEUTICAL: Rest: 11.1 mCi Tc-99m tetrofosmin Exercise: 33.4 mCi Tc-99m tetrofosmin Injection site: Left hand IV site COMPARISON: None TECHNIQUE: Standard myocardial perfusion SPECT images were obtained after resting tracer injection. Subsequently, a treadmill exercise tolerance test was performed. The patient exercised for 6 minutes and 56 seconds and achieved 87 % of the age predicted maximum heart rate. Standard myocardial perfusion images were obtained after tracer injection at peak exercise. FINDINGS: Image quality is adequate at rest and adequate at stress. There are no perfusion abnormalities. The left ventricular cavity size is normal . Gated tomographic images demonstrate normal wall motion and wall thickening with a left ventricular ejection fraction of greater than 75 % poststress (normal >45%). THIS IS AN ELECTRONICALLY VERIFIED FINAL REPORT 10/29/2024 3:39 PM - Electronically signed by Candelario Iyer M.D. LB: ANAT Report ID: [id number] Reading Location: [id number] Procedure Note Candelario Iyer MD - 10/29/2024 EXAM DESCRIPTION: NM CARD MULTI SPECT WITH WALL MOTION AND EJECTION FRACTION REASON FOR STUDY: Coronary artery calcification. RADIOPHARMACEUTICAL: Rest: 11.1 mCi Tc-99m tetrofosmin Exercise: 33.4 mCi Tc-99m tetrofosmin Injection site: Left hand IV site COMPARISON: None TECHNIQUE: Standard myocardial perfusion SPECT images were obtained after resting tracer injection. Subsequently, a treadmill exercise tolerance test was performed. The patient exercised for 6 minutes and 56 seconds and achieved 87 % of the age predicted maximum heart rate. Standard myocardial perfusion images were obtained after tracer injection at peak exercise. FINDINGS: Image quality is adequate at rest and adequate at stress. There are no perfusion abnormalities. The left ventricular cavity size is normal . Gated tomographic images demonstrate normal wall motion and wall thickening with a left ventricular ejection fraction of greater than 75 % poststress (normal >45%). THIS IS AN ELECTRONICALLY VERIFIED FINAL REPORT 10/29/2024 3:39 PM - Electronically signed by Candelario Iyer M.D. LB: LB Report ID: [id number] Reading Location: [place] [address] IMPRESSION: Normal myocardial perfusion study. No scintigraphic evidence of myocardial ischemia. Normal left ventricular ejection fraction of greater than 75 %. Normal wall motion. Demetria Woodall MD IMG NM CARDIAC NI ORDERABLES Final Result * ADULT CV STRESS TREADMILL W NUC MED (10/29/2024 9:25 AM CDT) Anatomical Region Laterality Modality CARDIO N/A Electrocardiogra phy Narrative 10/30/2024 9:46 AM CDT Non-Imaging Stress Test Patient Name MATTHEW Mosley Damir 1970 Patient ID (UPI) [id number] Indications: Dyspnea on exertion. Study Date10/29/2024 Type of Study: Non-Imaging Stress Test: Exercise. Conclusions Rest ECG Normal sinus rhythm. Standing HR:71 bpmStanding BP:139/84 mmHg Results ECG Non specific changes with up to 0.[address] depression in the inferior leads suggestive of equivocal result. Consider IMAGING stress test Symptoms Shortness of breath. Stress Stress Type - Protocol:Exercise - Obie Peak HR: 144 bpm [id number] Peak BP: 180/74 mmHg METS:9.8 METS Predicted HR: 164 bpm % of predicted HR: 88 Test Duration: 6:56 min Reason for Termination: Dyspnea Stress Protocol:Exercise - Obie +--------+--------+-----+---+----+ +-----+--------+---+--------+--+--- -+--- ---+ !Stage # !Stage !Time !VO2!Work!Speed/Grade!Heart!Blood !RPE!Pain !CP!Pain!Pain ! ! !Name ! ! ! ! !Rate !Pressure! !Location! !Type!Action! +--------+--------+-----+---+----+ +-----+--------+---+--------+--+--- -+--- ---+ !Rest !PRETEST !02:14! !1.7 !1.0/0.0 !86 !139/84 ! ! ! ! ! ! ! !WARM-UP ! ! ! ! ! ! ! ! ! ! ! ! +--------+--------+-----+---+----+ +-----+--------+---+--------+--+--- -+--- ---+ !0.0 !EXERCISE!03:00! !4.6 !1.7/10.0 !98 !180/74 ! ! ! ! ! ! ! !STAGE 1 ! ! ! ! ! ! ! ! ! ! ! ! +--------+--------+-----+---+----+ +-----+--------+---+--------+--+--- -+--- ---+ !1.0 !EXERCISE!06:00! !7.0 !2.5/12.0 !126 !180/74 ! ! ! ! ! ! ! !STAGE 2 ! ! ! ! ! ! ! ! ! ! ! ! +--------+--------+-----+---+----+ +-----+--------+---+--------+--+--- -+--- ---+ !2.0 !EXERCISE!06:56! !9.8 !3.4/14.0 !142 ! ! ! ! ! ! ! ! !STAGE 3 ! ! ! ! ! ! ! ! ! ! ! ! +--------+--------+-----+---+----+ +-----+--------+---+--------+--+--- -+--- ---+ !Recovery!RECOVERY!04:43! !1.0 !0.0/0.0 !84 !181/72 ! ! ! ! ! ! +--------+--------+-----+---+----+ +-----+--------+---+--------+--+--- -+--- ---+ Demographics Age 54 Gender Female Race Height 61 in. Weight 134 lbs. BMI 25.32 kg/m^2 Stress Managed Care Specialist Nurse Krzysztof Hernandez RN Interpreting Jose C Referring Jose C Augustin Physician Demetria Physician Procedure Note Demetria Woodall MD - 10/30/2024 Non-Imaging Stress Test Patient Name MATTHEW Mosley 1970 Patient ID (UPI) [id number] Indications: Dyspnea on exertion. Study Date10/29/2024 Type of Study: Non-Imaging Stress Test: Exercise. Conclusions Rest ECG Normal sinus rhythm. Standing HR:71 bpmStanding BP:139/84 mmHg Results ECG Non specific changes with up to 0.[address] depression in the inferior leads suggestive of equivocal result. Consider IMAGING stress test Symptoms Shortness of breath. Stress Stress Type - Protocol:Exercise - Obie Peak HR: 144 bpm [id number] Peak BP: 180/74 mmHg METS:9.8 METS Predicted HR: 164 bpm % of predicted HR: 88 Test Duration: 6:56 min Reason for Termination: Dyspnea Stress Protocol:Exercise - Obie +--------+--------+-----+---+----+ +-----+--------+---+--------+--+--- -+--- ---+ !Stage # !Stage !Time !VO2!Work!Speed/Grade!Heart!Blood !RPE!Pain!CP!Pain!Pain ! ! !Name ! ! ! ! !Rate !Pressure! !Location!!Type!Action! +--------+--------+-----+---+----+ +-----+--------+---+--------+--+--- -+--- ---+ !Rest !PRETEST !02:14! !1.7 !1.0/0.0 !86 !139/84 ! ! !! ! ! ! !WARM-UP ! ! ! ! ! ! ! ! !! ! ! +--------+--------+-----+---+----+ +-----+--------+---+--------+--+--- -+--- ---+ !0.0 !EXERCISE!03:00! !4.6 !1.7/10.0 !98 !180/74 ! ! !! ! ! ! !STAGE 1 ! ! ! ! ! ! ! ! !! ! ! +--------+--------+-----+---+----+ +-----+--------+---+--------+--+--- -+--- ---+ !1.0 !EXERCISE!06:00! !7.0 !2.5/12.0 !126 !180/74 ! ! !! ! ! ! !STAGE 2 ! ! ! ! ! ! ! ! !! ! ! +--------+--------+-----+---+----+ +-----+--------+---+--------+--+--- -+--- ---+ !2.0 !EXERCISE!06:56! !9.8 !3.4/14.0 !142 ! ! ! !! ! ! ! !STAGE 3 ! ! ! ! ! ! ! ! !! ! ! +--------+--------+-----+---+----+ +-----+--------+---+--------+--+--- -+--- ---+ !Recovery!RECOVERY!04:43! !1.0 !0.0/0.0 !84 !181/72 ! ! !! ! ! +--------+--------+-----+---+----+ +-----+--------+---+--------+--+--- -+--- ---+ Demographics Age 54 Gender Female Race Height 61 in. Weight 134 lbs. BMI 25.32 kg/m^2 Stress Managed Care Specialist Nurse Krzysztof Hernandez RN Interpreting Jose C Augustin Physician Demetria Alegre Demetria Woodall MD IMG STRESS Final Result * (ABNORMAL) CMP (COMPREHENSIVE METABOLIC PANEL) (09/16/2024 1:41 PM CDT) SODIUM 140 136 - 145 mmol/L 09/16/2024 3:00 PM CDT [facility] POTASSIUM 3.9 3.5 - 5.1 mmol/L 09/16/2024 3:00 PM CDT [facility] CHLORIDE 105 98 - 107 mmol/L 09/16/2024 3:00 PM CDT [facility] CO2, VENOUS 25 22 - 30 mmol/L 09/16/2024 3:00 PM CDT [facility] ANION GAP 13.9 <18.0 mmol/L 09/16/2024 3:00 PM CDT [facility] GLUCOSE 102(H) 70 - 99 mg/dL 09/16/2024 3:00 PM CDT [facility] BUN 14 10 - 20 mg/dL 09/16/2024 3:00 PM CDT [facility] CREATININE, BLOOD 0.76 0.60 - 1.00 mg/dL 09/16/2024 3:00 PM CDT [facility] BUN/CREATININE RATIO 18 12 - 20 ratio 09/16/2024 3:00 PM CDT [facility] TOTAL PROTEIN 7.7 6.0 - 8.0 g/dL 09/16/2024 3:00 PM CDT [facility] ALBUMIN 4.5 3.5 - 5.0 g/dL 09/16/2024 3:00 PM CDT [facility] A/G RATIO 1.4 1.0 - 2.2 09/16/2024 3:00 PM CDT [facility] CALCIUM 9.6 8.7 - 10.5 mg/dL 09/16/2024 3:00 PM CDT [facility] T BILI 0.5 0.2 - 1.2 mg/dL 09/16/2024 3:00 PM CDT [facility] SGOT (AST) 39 <43 U/L 09/16/2024 3:00 PM CDT [facility] SGPT (ALT) 56(H) <56 U/L 09/16/2024 3:00 PM CDT [facility] ALKALINE PHOSPHATASE 68 40 - 150 U/L 09/16/2024 3:00 PM CDT [facility] IS THE PATIENT REQUIRED TO BE FASTING? No 09/16/2024 3:00 PM CDT [facility] GFR, ESTIMATED >60 >=60 09/16/2024 3:00 PM CDT [facility] Comment: Creatinine Clearance is the preferred criteria for selecting drug dose adjustments in renally impaired patients. The GFR is provided as additional pertinent clinical information. GFR is reported in mL/min/1.73 sq m. Calculation based on the Chronic Kidney Disease Epidemiology Collaboration (CKD- EPI) equation refit without adjustment for race. GFR, EST. >60 >=60 025 3:00 PM CDT [facility] GFR, EST. NONAFRICAN >60 >=60 09/16/2024 3:00 PM CDT [facility] Blood Venipuncture / Unknown 09/16/2024 1:41 PM CDT 09/16/2024 2:33 PM CDT us Milly Erickson MAINTENANCE SHOP WELDER, SODA COLUMN OPERATOR CHEMISTRY ORDERABLES Final Result [facility] [address] [place] [address] * CT CHEST SCREENING WO (05/21/2024 1:12 PM TOP STOP ATTACHER) Anatomical Region Laterality Modality Chest N/A Computed Tomogra phy 05/31/2024 9:21 AM TOP STOP ATTACHER Impressions 05/31/2024 9:24 AM TOP STOP ATTACHER IMPRESSION: Minimal emphysema. Tiny centrilobular ground-glass nodules as can be seen in the setting of respiratory bronchiolitis in a current smoker. Scattered tiny bilateral pulmonary nodules, the largest measuring 4 mm. Coronary artery calcifications. 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 Comparison with any prior available imaging studies recommended. If no prior studies are available to document long-term stability, 6-12 month follow-up CT of the abdomen is recommended. Additional findings as above. Lung-RADS category 2S: Benign appearance or behavior. Finding other than a pulmonary nodule which is potentially clinically significant. Recommendation: Low dose Screening CT of chest in 12 months. Narrative 05/31/2024 9:24 AM TOP STOP ATTACHER EXAM DESCRIPTION: CT CHEST SCREENING WO REASON FOR STUDY: Screening CT of the chest in a current smoker with a 20 pack year smoking history. Additional history: History of melanoma.. TECHNIQUE: Low dose CT scan of the chest was performed without intravenous contrast using helical scanning technique. The exam extends from the lung apices through the lung bases. Automatic exposure control was used as a dose optimization technique. NOTE: This study was performed for the specific purposes of lung cancer screening and is not an alternative to diagnostic chest CT. RADIATION DOSE: CT dose index volume (CTDIvol) = 3.62 mGy COMPARISON: None FINDINGS: SMOKING RELATED LUNG DISEASE: Minimal emphysema. Tiny centrilobular ground-glass nodules as can be seen in the setting of respiratory bronchiolitis in a current smoker. LUNG NODULES: There are a few scattered tiny bilateral nodules. For instance a 2 mm nodule in the periphery of the right upper lobe laterally on image number 99. This may be faintly calcified. There are a few calcified granulomas. 4 mm juxta fissural right middle lobe pulmonary nodule, image 111 3 mm juxta fissural nodule anterior left lower lobe image 107. CORONARY ARTERY CALCIFICATION: Present OTHER: No pneumonic consolidation. There is mild subsegmental scarring/atelectasis. No effusion or pneumothorax. The central airways are widely patent. No mediastinal or hilar lymphadenopathy. The heart is normal in size without pericardial effusion. Thoracic aorta normal in caliber. No axillary lymphadenopathy. The chest wall is unremarkable. Visualized upper abdomen reveals a probable partially rim calcified splenic artery aneurysm measuring 1 cm. Comparison with any prior available imaging studies recommended. Imaging surveillance recommended in 6-12 months if no prior studies are available to document long-term stability. Thoracic spondylosis. No acute osseous abnormality THIS IS AN ELECTRONICALLY VERIFIED FINAL REPORT 05/31/2024 9:21 AM - Electronically signed by Melania Maldonado M.D. TW: TW Report ID: [id number] Reading Location: [id number] Procedure Note Melania Maldonado MD - 05/31/2024 EXAM DESCRIPTION: CT CHEST SCREENING WO REASON FOR STUDY: Screening CT of the chest in a current smoker with a 20 pack year smoking history. Additional history: History of melanoma.. TECHNIQUE: Low dose CT scan of the chest was performed without intravenous contrast using helical scanning technique. The exam extends from the lung apices through the lung bases. Automatic exposure control was used as a dose optimization technique. NOTE: This study was performed for the specific purposes of lung cancer screening and is not an alternative to diagnostic chest CT. RADIATION DOSE: CT dose index volume (CTDIvol) = 3.62 mGy COMPARISON: None FINDINGS: SMOKING RELATED LUNG DISEASE: Minimal emphysema. Tiny centrilobular ground-glass nodules as can be seen in the setting of respiratory bronchiolitis in a current smoker. LUNG NODULES: There are a few scattered tiny bilateral nodules. For instance a 2 mm nodule in the periphery of the right upper lobe laterally on image number 99. This may be faintly calcified. There are a few calcified granulomas. 4 mm juxta fissural right middle lobe pulmonary nodule, image 111 3 mm juxta fissural nodule anterior left lower lobe image 107. CORONARY ARTERY CALCIFICATION: Present OTHER: No pneumonic consolidation. There is mild subsegmental scarring/atelectasis. No effusion or pneumothorax. The central airways are widely patent. No mediastinal or hilar lymphadenopathy. The heart is normal in size without pericardial effusion. Thoracic aorta normal in caliber. No axillary lymphadenopathy. The chest wall is unremarkable. Visualized upper abdomen reveals a probable partially rim calcified splenic artery aneurysm measuring 1 cm. Comparison with any prior available imaging studies recommended. Imaging surveillance recommended in 6-12 months if no prior studies are available to document long-term stability. Thoracic spondylosis. No acute osseous abnormality THIS IS AN ELECTRONICALLY VERIFIED FINAL REPORT 05/31/2024 9:21 AM - Electronically signed by Melania Maldonado M.D. TW: ALEKS Report ID: [id number] Reading Location: [id number] IMPRESSION: Minimal emphysema. Tiny centrilobular ground-glass nodules as can be seen in the setting of respiratory bronchiolitis in a current smoker. Scattered tiny bilateral pulmonary nodules, the largest measuring 4 mm. Coronary artery calcifications. 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 Comparison with any prior available imaging studies recommended. If no prior studies are available to document long-term stability, 6-12 month follow-up CT of the abdomen is recommended. Additional findings as above. Lung-RADS category 2S: Benign appearance or behavior. Finding other than a pulmonary nodule which is potentially clinically significant. Recommendation: Low dose Screening CT of chest in 12 months. Key Tran PAC IMG CT ORDERABLES Final Result * PATHOLOGY CYTOLOGY DIRECTOR PRODUCT MANAGEMENT (02/22/2022 11:02 AM CDT) SPECIMEN ADEQUACY Satisfactory for evaluation. Endocervical/transf ormation zone component is present. 03/08/2022 1:01 PM CDT [facility] DESCRIPTIVE DIAGNOSIS NEGATIVE FOR INTRAEPITHELIAL LESIONS OR MALIGNANCY. 03/08/2022 1:01 PM CDT [facility] at 1300 CDT HPV Reflex if ASCUS? Yes 03/08/2022 1:01 PM CDT [facility] Automated Examination This sample was not evaluated by the automated imaging and review system due to technical and/or biologic factor(s). The case was screened, reviewed, and finalized by a ginning operator and/or pathologist. 03/08/2022 1:01 PM CDT [facility] Disclaimer The PAP smear is a screening test designed to detect cancerous or precancerous cells of the uterine cervix. It is one of the best means available for detection of cervical cancer but still carries an inherent false-negative rate. The consequences of a false-negative PAP result can be minimized by adhering to current screening guidelines. The following are general guidelines recommended by the ACS, ASCP, ASCCP, and ACOG: PAP testing is recommended every three years for women 21-29, Co-Testing, a PAP test in conjunction with an HPV (Human Papillomavirus) test for women ages 30-65, and no PAP or HPV testing for women under the age of 21 or older than 65 unless clinically indicated. 03/08/2022 1:01 PM CDT [facility] Other CERVIX UTERI STRUCTURE / Unknown Non-Phlebotomy Collection / Unknown 02/22/2022 11:02 AM CDT 02/22/2022 11:03 AM CDT us Milly Erickson APRN, KOBE PATHOLOGY/CYTOLOGY O RDERABLES Final Result [facility] [address] [place] [address], * HUMAN PAPILLOMA VIRUS (HPV) (02/22/2022 11:01 AM CDT) HPV OTHER HIGH RISK TYPES, PCR NEGATIVE NEGATIVE 02/25/2022 1:03 PM CDT [facility] Comment: The following Other High Risk types were not detected: 31, 33, 35, 39, 45, 51, 52, 56, 58, 59, 66, and 68. A negative high-risk HPV result does not exclude the possibility of future cytologic HSIL or underlying CIN2-3 or cancer. The presence of PCR inhibitors may cause false negative or invalid results. If concentrations of whole blood in the sample exceed 1.5% (dark red or brown coloration) in PreservCyt solution, there is a likelihood of obtaining a false-negative result. HPV TYPE 16 NEGATIVE NEGATIVE 02/25/2022 1:03 PM CDT [facility] Comment: A negative high-risk HPV result does not exclude the possibility of future cytologic HSIL or underlying CIN2-3 or cancer. The presence of PCR inhibitors may cause false negative or invalid results. If concentrations of whole blood in the sample exceed 1.5% (dark red or brown coloration) in PreservCyt solution, there is a likelihood of obtaining a false-negative result. HPV TYPE 18 NEGATIVE NEGATIVE 02/25/2022 1:03 PM CDT [facility] Comment: A negative high-risk HPV result does not exclude the possibility of future cytologic HSIL or underlying CIN2-3 or cancer. The presence of PCR inhibitors may cause false negative or invalid results. If concentrations of whole blood in the sample exceed 1.5% (dark red or brown coloration) in PreservCyt solution, there is a likelihood of obtaining a false-negative result. HPV ORDER BE USED FOR SCREENING OR DIAGNOSTIC SCREENING 02/25/2022 1:03 PM CDT [facility] Other Non-Phlebotomy Collection / Unknown 02/22/2022 11:01 AM CDT 02/22/2022 11:03 AM CDT Narrative [facility] - 02/25/2022 1:03 PM CDT Performed by Real-Time Polymerase Chain Reaction (PCR) on the Ofelia Rene 4800. This assay has been validated for use with post-aliquot samples from the [employer] T5000 processor. Milly Erickson APRN, CNP LAB SEND OUTS Sue l Result [facility] [address] [place] [address], [facility] [address] [place] [address] * HM COLONOSCOPY (02/28/2020 12:00 AM CDT) 02/28/2020 Not On File Provider PROCEDURE/MINOR SURGICAL OR DERABLES Final Result [facility] NON-INTERFACED REFERENCE LABORATORIES from Last 3 Months or Most Recently Relevant to Health Maintenance Insurance RUST Advance Directives Documents on File Type Date Recorded Patient Tester Compressed Gases Expl anation Other Advance Directive 11/26/2021 12:07 PM CARDIOLOGY RECORDS Care Teams Research Manager Relationship Specialty Start Date End Date Milly Erickson APRN, SODA COLUMN OPERATOR #2 [facility] [address] [place] [address] PCP - General Advanced Practice Nurse 10/31/21 Kyle Vora MD #2 [facility] [address] [place] [address] Consulting Physician Colon and Rectal Surgery 05/14/24 Demetria Woodall MD 2 [facility] [address] [place] [address] Consulting Physician Cardiology 06/25/24
--- OUTSIDE RECORDS SUMMARY | 2025-01-10 08:08 | XMS_ITS | Encounter Summary ---
Author Organization [facility] Address [address] [place] [address] Phone Care Team Providers Care Nanotechnology Engineering Technologist Name Role Phone Milly Erickson APRN, CNP Primary Care Provid er Brigido Vaz MD Unavailable Kyle Panda MD Unavailable Demetria Woodall MD Unavailable Reason for Visit * Reason Comments Medication Refill Encounter Details Date Type Department Care Team (Late st Contact Info) Description 09/27/2023 Refill [facility] - Family Medicine [facility] [address] [place] [address] Milly Erickson APRN, CNP [address] [address] Medication Refill Social History Tobacco [...] Telephone Encounter - Charlene Yousif RN - 09/29/2023 9:08 AM CDT Medication(s) refilled and signed per [facility] Chronic Medication Refill Standing Order for Pediatricand Adult Patients. Requested Prescriptions Pending Prescriptions Disp Refills dulaglutide (Trulicity) 0.75 MG/0.5ML Solution Pen-injector [Pharmacy Med Name: TRULICITY 0.75MG/0.5ML SDP 0.5ML] 2 mL 1 Sig: ADMINISTER 0.75 MG UNDER THE SKIN 1 TIME A WEEK GLP-1 Agonists Protocol Passed - 09/27/2023 6:57 AM Passed - Lipid panel result on [...] 08/04/23 Office Visit Milly Erickson APRN, KOBE [place] Showing recent visits within past 182 days and meeting all other requirements Future Appointments Date Type Provider Dept 12/08/23 Appointment Milly Erickson APRN, KOBE [place] Showing future appointments within next 90 [...] Ref Range Status 07/07/2023 >60 >=60 Final documented in this encounter Plan of Treatment Upcoming Encounters Date Type Department Care Team (Late st Contact Info) Description 01/10/2025 1:30 PM CDT Office Visit [facility] - Cardiology [facility] [address] [place] [address] Sarah Luong APRN, NUT FEEDER [address] [place] [address] 07/04/2025 10:30 AM LOW HEEL BUILDER Office Visit [facility] Family Medicine [facility] [address] [place] [address] Milly Erickson APRN, NUT FEEDER [address] [address] documented as of this encounter Visit Diagnoses Diagnosis Type 2 diabetes mellitus without complication, without long-term current use of insulin documented in this encounter Care Teams Nanotechnology Engineering Technologist Relationship Specialty Start Date End Date Milly Erickson APRN, NUT FEEDER [address] [place] [address] PCP - General Advanced Practice Nurse 10/31/21 Brigido Vaz MD #2 [facility] [address] [place] [address] [employer] Professor Cardiovascular Disease - Cardiology 11/16/21 07/21/24 Kyle Vora MD #[address] [address] Consulting Physician Colon and Rectal Surgery 05/14/24 Demetria oWodall MD [address] [address] Consulting Physician Cardiology 06/25/24 documented as of this encounter
--- OUTSIDE RECORDS SUMMARY | 2025-01-10 08:08 | XMS_ITS | Encounter Summary ---
Author Organization [facility] Address [address] [facility] [place] [address] Phone Care Team Providers Care Yard Goods Salesperson Name Role Phone Milly Erickson APRN, CNP Primary Care Provid er Kyle Vora MD Unavailable Demetria Woodall MD Unavailable Encounter Details Date Type Department Care Team (Late st Contact Info) Description 08/23/2024 Transcribe Orders [facility] [address] [place] [address] Obie Walsh MD [facility] [place] [address] Social History Tobacco Use Types Packs/Day Years Used Date Smoking Tobacco: Former Cigarettes 1 20.6 S tarted: 2004 Smokeless Tobacco: Never Comments:[place] pouch Alcohol Use Standard Drinks/Week Comments Not Currently 0 (1 standard drink = 0.6 oz pur e alcohol) [facility] Utilities Answer Date Recorded In the past 12 months has [employer] electric, gas, oil, or water company threatened [...] week 08/19/2024 How often do you attend [facility] or oriental orthodox services? More than 4 times per year 08/19/2024 Do you belong to any clubs o r organizations such as hoahaoism groups, unions, fraternal or athletic groups, or [...] Score - Questions 1-9 0 08/01 [facility] - Occupational [...] were you homeless or living in a residential (including now)? No 08/19/2024 Education Answer Date [...] Description 01/10/2025 1:30 PM CDT Office Visit [facility] - Cardiology - [place] [address] [place] [address] Sarah Luong APRN, CNP [address] [place] [address] 07/04/2025 10:30 AM RETAIL ACCOUNT EXECUTIVE [facility] Visit [facility] - [facility] Medicine - [place] [address] [place] [address] Milly Erickson APRN, CNP [address] [address] documented as of this encounter Visit Diagnoses Not on filedocumented in this encounter Additional Health Concerns Assessment Noted Time PHQ-9 Depression Total Score: 0 08/20/19 25 10:03 AM CDT documented as of this encounter Care Teams Yard Goods Salesperson Relationship Specialty Start Date End Date Milly Erickson APRN, KOBE #2 [facility] [address] [place] [address] PCP - General Advanced Practice Nurse 10/31/21 Kyle Vora MD #2 [facility] [address] [place] [address] Consulting Physician Colon and Rectal Surgery 05/14/24 Demetria Woodall MD [address] [address] Consulting Physician Cardiology 06/25/24 documented as of this encounter
--- OUTSIDE RECORDS SUMMARY | 2025-01-10 08:08 | XMS_ITS | Encounter Summary ---
Author Organization [facility] Address [address] [place] [address] Phone Care Team Providers Care Brand Director Name Role Phone Milly Erickson APRN, CNP Primary Care Provid er Brigido Vaz MD Unavailable Kyle Panda MD Unavailable Demetria Woodall MD Unavailable Reason for Visit * Reason Comments Medication Refill Encounter Details Date Type Department Care Team (Late st Contact Info) Description 08/26/2023 Refill [facility] - Family Medicine [facility] [address] [place] [address] Milly Erickson APRN, CNP [address] [address] Medication Refill Social History Tobacco [...] Telephone Encounter - Charlene Yousif RN - 08/27/2023 7:18 AM CDT Medication(s) refilled and signed per [facility] Chronic Medication Refill Standing Order for Pediatricand Adult Patients. Requested Prescriptions Pending Prescriptions Disp Refills Trulicity 0.75 MG/0.5ML Solution Pen-injector [Pharmacy Med Name: TRULICITY 0.75MG/0.5ML SDP 0.5ML]2 mL 0 Sig: ADMINISTER 0.75 MG UNDER THE SKIN 1 TIME A WEEK GLP-1 Agonists Protocol Passed - 08/26/2023 6:00 PM Passed - Lipid panel result on [...] Office Visit Milly Erickson APRN, [place] [place] 03/10/23 Office Visit Milly Erickson APRN, [facility] [...] Description 01/10/2025 1:30 PM CDT Office Visit [facility] - Cardiology [facility] [address] [place] [address] Sarah Luong APRN, [employer] [address] [place] [address] 07/04/2025 10:30 AM [employer] [facility] [employer] Office Visit [facility] [address] [place] [address] Milly Erickson APRN, [employer] [address] [id number] documented as of this encounter Visit Diagnoses Diagnosis Type 2 diabetes mellitus without complication, without long-term current use of insulin documented in this encounter Care Teams Brand Director Relationship Specialty Start Date End Date Milly Erickson APRN, [employer] [address] [place] [address] PCP - General Advanced Practice Nurse 10/31/21 Brigido Vaz MD [address] [facility] [address] [place] [address] [employer] Cardiovascular Disease - Cardiology 11/16/21 07/21/24 Kyle Vora MD #[address] [address] Consulting Physician Colon and Rectal Surgery 05/14/24 Demetria Woodall MD [address] [address] Consulting Physician Cardiology 06/25/24 documented as of this encounter
== END 2025-01-10 08:03 | disposition home or self-care (01) ==
LOC: ANHIMG 08:04
PROVIDERS: Visit Provider Nurse Practitioner
DX: R92.8 Other abnormal and inconclusive findings on diagnostic imaging of breast (principal)
CPT/HCPCS: 76642